=== PATIENT | male | born 1955 | race Caucasian/White ===

== ENCOUNTER 2024-10-18 17:39 | Inpatient (IN) | payer OTHER, MEDICARE ==
[~2024-10-18] VITALS: Ht 175.3 cm; Wt 81.8 kg
[2024-10-18 18:51] LABS: Eosinophils # (auto) 0 10 ^3/uL (0-0.8); Eosinophils % (auto) 0.1 % (0.0-7.0); Hemoglobin 14.2 g/dL (13.5-17.5); Lymphocytes # (auto) 1.9 10 ^3/uL (0.4-5.4); Monocytes # (auto) 1.2 10 ^3/uL (0-1.3); Nucleated Red Blood Cells % 0.1 %; Platelet Count (auto) 208 10^3/uL (140-450)
[2024-10-18 18:55] LABS: Basophils # (auto) 0.1 10 ^3/uL (0-0.2); Basophils % (auto) 0.5 % (0.0-2.0); Hematocrit 40.1 % (41.0-53.0); Lymphocytes % (auto) 15.7 % (10.0-50.0); Mean Corpuscular Hemoglobin 35.2 pg (28.0-32.0); Mean Corpuscular Hgb Conc. 35.3 g/dL (32.0-36.0); Mean Corpuscular Volume 99.7 fL (80.0-100.0); Monocytes % (auto) 9.9 % (0.0-12.0); Neutrophils # (auto) 8.9 10 ^3/uL (1.6-8.6); Neutrophils % (auto) 73.8 % (37.0-80.0); Red Blood Cells 4.02 10^6/uL (4.5-5.90)
[2024-10-18 19:12] LABS: INR 1.14 (0.9-1.15); Prothrombin Time 11.9 sec (9.3-11.8)
[2024-10-18 19:14] LABS: Alkaline Phosphatase 112 U/L (46-116); Anion Gap 15 (5-15); BUN/Creatinine Ratio 10.5 (10.0-20.0); Blood Alcohol 7.4 mg/dL (<10); Blood Urea Nitrogen 19 mg/dL (9-23); Calcium 10.3 mg/dL (8.7-10.4); Carbon Dioxide 23 mmol/L (20-31); Potassium 3.8 mmol/L (3.5-5.1)
[2024-10-18 19:15] LABS: Total Protein 7.8 g/dL (5.7-8.2)
--- NOTE | 2024-10-18 19:19 | DVH ---
CT BRAIN WITHOUT CONTRAST HISTORY: fall TECHNIQUE: Axial scans were obtained from the skull base through the vertex without contrast. Sagitta l and coronal reformats were generated. One or more of the following radiation dose reduction techniq ues were used for this examination: automated exposure control, adjustment of the mA and/or kV accord ing to patient size, use of iterative reconstruction technique. COMPARISON: None FINDINGS: Mild to moderate generalized cerebral atrophy. No acute intracranial hemorrhage or evidence of large vessel territorial infarction identified at this time. No midline shift. The basilar cisterns are pa tent. Mild left maxillary sinus mucosal thickening partially imaged. The mastoid air cells are clear. No gr ossly displaced calvarial fracture is identified. Possible left anterior frontal scalp contusions. IMPRESSION: No acute intracranial findings. Left frontal scalp contusions. CT OF THE CERVICAL SPINE WITHOUT CONTRAST HISTORY: fall COMPARISON: None TECHNIQUE: Thin section helical axial scans were obtained from the skull base to the upper thoracic s pine. Sagittal and coronal reformatted images were obtained. One or more of the following radiation d ose reduction techniques were used for this examination: automated exposure control, adjustment of th e mA and/or kV according to patient size, use of iterative reconstruction technique. FINDINGS: Straightening and mild reversal of the cervical lordotic curvature. No grossly displaced fractures or subluxations identified. Multilevel disc space narrowing and marginal osteophyte formation is noted. Disc osteophyte complex causes [id number] narrowing of the bony spinal canal at C3-C4. Prevertebral soft tissues appear within normal limits. IMPRESSION: No displaced fractures or subluxations identified. Straightening and mild reversal of the cervical curvature may be in part related to patient positioni ng and/or muscular spasm. Degenerative changes.
[2024-10-18 19:21] LABS: Chloride 91 mmol/L (98-107); Sodium 129 mmol/L (136-145)
[2024-10-18 19:22] LABS: Alanine Aminotransferase 77 U/L (7-40); Albumin 4.8 g/dL (3.2-4.8); Aspartate Aminotransferase 87 U/L (13-40); Bilirubin, Total 1.9 mg/dL (0.2-1.0); Glucose 107 mg/dL (74-106)
[2024-10-18 19:30] LABS: Lactic Acid w/Reflex 2.8 mmol/L (0.4-2.0)
[2024-10-18] MEDS: SODIUM CHLORIDE 0.9% 1,000 ML IV ONE (19:43)
--- NOTE | 2024-10-18 19:51 | ED.PDOC ---
History of Present Illness HPI Comments HPI: Poor Historian. 69-year-old male status post mechanical fall from a standing position at home without loss of consciousness. He tripped and fell and hit his head. Patient is on Eliquis. Patient was drinking whiskey at that time. He stopped drinking any alcohol since then. Patient ambulating independently in the ED. Pt states he drinks 1 pint daily which pt states is approx 8 shots 3x weekly. Pt states she started drinking 3x daily after significant other in 2011. Pt last drink Thursday, 2 days prior. Pt states he is currently on eliquis for unknown reason but states he was placed on blood thinner by PCP. Past Medical History: unknown Past Surgical History: ACL surgery medications: eliquis social history: denies tobacco use, heavy ETOH use, denies drug use. allergies: denies REVIEW OF SYSTEMS: CONSTITUTIONAL: Denies acute: fever, diaphoresis, chills, generalized weakness. HEAD: Denies acute: headache, photophobia Eyes: Denies acute: Double vision, vision loss, eye pain, eye discharge. EARS: Denies acute: tinnitus, hearing loss, ear discharge, ear pain, THROAT: Denies acute: sore throat, swelling, difficulty swallowing , pain with swallowing, change in voice. NECK: Denies acute: neck pain, neck swelling, stiff neck. HEART: Denies acute : chest pain, palpitations, LUNGS: Denies acute: SOB, wheezing, cough, hemoptysis ABDOMEN: Denies acute: abdominal pain, Nausea, Vomiting, diarrhea, melena , hematemesis, hematochezia SKIN: Denies acute: rash, redness, lesions, itchiness. EXTREMITIES: Denies acute: calf pain, numbness, tingling, weakness, denies pain in extremity. Denies acute: Low back pain. Neuro: Denies acute: focal neurological deficit, motor or sensory focal neurological deficit, tremors, seizure like activity, confusion, dizziness, change in mental status, loss of bowel or bladder function, cauda equina like symptoms. : Denies acute: dysuria, hematuria, flank pain, increase in urinary frequency. PSYCH: Denies acute: hallucination, suicidal ideation, homicidal ideation. PHYSICAL EXAM: General: no acute distress, awake and alert. Head: normocephalic, noted head contusion. Neck: supple, trachea is midline, no swelling. Cervical spine: Palpation of the posterior midline of the cervical spine reveals no focal swelling, erythema, focal tenderness to palpation. Patient has normal range of motion. Palpation of the remainder of the thoracic and lumbar spine reveals no focal tenderness to palpation or swelling. Throat: Normal phonation. Eyes:, no erythema, no proptosis, no icterus. Heart: regular rate, regular rhythm, no significant murmur appreciated. Lungs: no apparent respiratory distress, Able to speak in full sentences. No wheezing, no rhonchi, no crackles. No stridors Clear to auscultation bilaterally. Abdomen: non tender to palpation, non distended, soft, no guarding, no rebound, + bowel sounds. Neuro: Awake, Alert, oriented to name, self, situation, follows commands GCS=15. Speech is normal. Skin: no petechia, no purpura, no cyanosis, non-pale, not jaundice. Lower extremities: --no - Pitting edema no deformity, no focal swelling, no calf TTP. Makes eye contact. moves all four extremities. Face: no apparent facial droop. Ambulating in the ED independently. No nuchal rigidity, Kernig's sign, Brudzinski's sign, no meningeal signs. Chief Complaint: Head Injury Time Seen by MD: 18:12 Reviewed Notes: Nurses Notes, Medications, Allergies Allergies: Coded Allergies: NO KNOWN ALLERGIES (Unverified , 10/18/24) Information Source: Patient Mode of Arrival: Ambulatory Past Medical History PAST MEDICAL HISTORY: Unknown Was a procedure done? Was a procedure done?: No Differential Dx Considerations may include: Alcohol withdrawal, alcohol intoxication, intracranial injury bleed dislocation fracture spinal cord injury, ACS, CVA X-Ray, Labs, Meds, VS Vital Signs Date Time Temp Pulse Resp B/P (MAP) Pulse Ox O2 Delivery O2 Flow Rate FiO2 10/18/24 22:00 98.9 79 19 141/78 (99) 97 98.9 10/18/24 21:36 98.1 95 17 134/72 (92) 96 98.1 10/18/24 20:23 99 19 98 Room Air* 0 21 10/18/24 20:22 98.9 99 20 156/86 (109) 96 98.9 10/18/24 20:13 100 10/18/24 19:59 99.8 90 20 99/74 (82) 96 99.8 10/18/24 19:59 90 20 96 Room Air 10/18/24 18:10 98.6 99 16 132/90 (104) 97 Lab Test 10/18/24 21:12 10/18/24 20:49 10/18/24 19:28 10/18/24 19:20 Range/Units Troponin I High Sensitivity 24 23 </=54 ng/L Lactic Acid Level 2.5 *H 0.4-2.0 mmol/L Urine Color Light-orange Yellow Urine Clarity Turbid H Clear Urine pH 5.5 5.0-9.0 Urine Specific [place] 1.011 1.001-1.035 Urine Protein 1+ H Negative Urine Ketones 1+ H Negative Urine Blood 1+ H Negative /uL Urine Nitrite Negative Negative Urine Bilirubin Negative Negative Urine Urobilinogen Normal Negative mg/dL Urine Leukocyte Esterase 1+ Negative /uL Urine RBC 1 0 - 3 /hpf Urine Microscopic WBC 8 H 0-3 /HPF Urine Squamous Epithelial Cells Few <5 /hpf Urine Bacteria Few H None Seen /hpf Urine Hyaline Casts Mod 0 - 2 /lpf Urine Glucose Normal Normal mg/dL Urine Opiates Screen Neg NEGATIVE Urine Fentanyl Screen Neg NEGATIVE Urine Barbiturates Screen Neg NEGATIVE Urine Phencyclidine Screen Neg NEGATIVE Urine Amphetamines Screen Neg NEGATIVE Urine Benzodiazepines Screen Neg NEGATIVE Urine Cocaine Screen Neg NEGATIVE Urine Cannabinoids Screen Neg NEGATIVE Test 10/18/24 18:35 Range/Units White Blood Count 12.0 H 4.4-10.8 10^3/uL Red Blood Count 4.02 L 4.5-5.90 10^6/uL Hemoglobin 14.2 13.5-17.5 g/dL Hematocrit 40.1 L 41.0-53.0 % Mean Corpuscular Volume 99.7 80.0-100.0 fL Mean Corpuscular Hemoglobin 35.2 H 28.0-32.0 pg Mean Corpuscular Hemoglobin Concent 35.3 32.0-36.0 g/dL Red Cell Distribution Width 13.0 11.8-14.3 % Platelet Count 208 140-450 10^3/uL Mean Platelet Volume 7.9 6.9-10.8 fL Neutrophils (%) (Auto) 73.8 37.0-80.0 % Lymphocytes (%) (Auto) 15.7 10.0-50.0 % Monocytes (%) (Auto) 9.9 0.0-12.0 % Eosinophils (%) (Auto) 0.1 0.0-7.0 % Basophils (%) (Auto) 0.5 0.0-2.0 % Neutrophils # (Auto) 8.9 H 1.6-8.6 10 ^3/uL Lymphocytes # (Auto) 1.9 0.4-5.4 10 ^3/uL Monocytes # (Auto) 1.2 0-1.3 10 ^3/uL Eosinophils # (Auto) 0 0-0.8 10 ^3/uL Basophils # (Auto) 0.1 0-0.2 10 ^3/uL Nucleated Red Blood Cells 0.1 % Prothrombin Time 11.9 H 9.3-11.8 sec Prothrombin Time INR 1.14 0.9-1.15 Activated Partial Thromboplast Time 32.0 24.5-34.5 SEC Sodium Level 129 L 136-145 mmol/L Potassium Level 3.8 3.5-5.1 mmol/L Chloride Level 91 L 98-107 mmol/L Carbon Dioxide Level 23 20-31 mmol/L Anion Gap 15 5-15 Blood Urea Nitrogen 19 9-23 mg/dL Creatinine 1.81 H 0.700-1.30 mg/dL Glomerular Filtration Rate Calc 40 >90 mL/min BUN/Creatinine Ratio 10.5 10.0-20.0 Serum Glucose 107 H 74-106 mg/dL Lactic Acid Level 2.8 *H 0.4-2.0 mmol/L Calcium Level 10.3 8.7-10.4 mg/dL Magnesium Level 1.0 L 1.6-2.6 mg/dL Total Bilirubin 1.9 H 0.2-1.0 mg/dL Aspartate Amino Transferase (AST) 87 H 13-40 U/L Alanine Aminotransferase (ALT) 77 H 7-40 U/L Alkaline Phosphatase 112 46-116 U/L Troponin I High Sensitivity 23 </=54 ng/L Total Protein 7.8 5.7-8.2 g/dL Albumin 4.8 3.2-4.8 g/dL Plasma/Serum Blood Alcohol 7.4 <10 mg/dL [facility] [id number] [facility] [id number] Ph: [phone] DIAGNOSTIC IMAGING Diagnostic Imaging Report : [id number] Signed PATIENT: GEORGES MCGREGOR ACCT: [id number] UNIT: [id number] : 1955 LOC: ER ROOM / BED: / AGE / SEX: 69 / M ADM STATUS: REG ER SERVICE 11 ORDERING PHYSICIAN: LUIS MIGUEL TOMLIN DO PROCEDURE(s): HWOCT - HEAD WITHOUT CONTRAST REASON: fall ORDER NUMBER(s): [id number], ACCESSION NUMBER(s): [id number] CT BRAIN WITHOUT CONTRAST HISTORY: fall TECHNIQUE: Axial scans were obtained from the skull base through the vertex without contrast. Sagittal and coronal reformats were generated. One or more of the following radiation dose reduction techniques were used for this examination: automated exposure control, adjustment of the mA and/or kV according to patient size, use of iterative reconstruction technique. COMPARISON: None FINDINGS: Mild to moderate generalized cerebral atrophy. No acute intracranial hemorrhage or evidence of large vessel territorial infarction identified at this time. No midline shift. The basilar cisterns are patent. Mild left maxillary sinus mucosal thickening partially imaged. The mastoid air cells are clear. No grossly displaced calvarial fracture is identified. Possible left anterior frontal scalp contusions. IMPRESSION: No acute intracranial findings. Left frontal scalp contusions. CT OF THE CERVICAL SPINE WITHOUT CONTRAST HISTORY: fall COMPARISON: None TECHNIQUE: Thin section helical axial scans were obtained from the skull base to the upper thoracic spine. Sagittal and coronal reformatted images were obtained. One or more of the following radiation dose reduction techniques were used for this examination: automated exposure control, adjustment of the mA and/or kV according to patient size, use of iterative reconstruction technique. FINDINGS: Straightening and mild reversal of the cervical lordotic curvature. No grossly displaced fractures or subluxations identified. Multilevel disc space narrowing and marginal osteophyte formation is noted. Disc osteophyte complex causes [id number] narrowing of the bony spinal canal at C3-C4. Prevertebral soft tissues appear within normal limits. IMPRESSION: No displaced fractures or subluxations identified. Straightening and mild reversal of the cervical curvature may be in part related to patient positioning and/or muscular spasm. Degenerative changes. ATED BY: ISIAH CRAWFORD MD DICTATED DATE/TIME: 10/18/241915 SIGNED BY: ISIAH CRAWFORD MD SIGNED DATE/TIME: 10/18/241915 CC: [place] [id number] Ph: [phone] DIAGNOSTIC IMAGING Diagnostic Imaging Report : [id number] Signed PATIENT: GEORGES MCGREGOR ACCT: [id number] UNIT: [id number] : 1955 LOC: ER ROOM / BED: / AGE / SEX: 69 / M ADM STATUS: REG ER SERVICE 11 ORDERING PHYSICIAN: LUIS MIGUEL TOMLIN DO PROCEDURE(s): CS2 - CERVICAL WITHOUT CONTRAST REASON: fall ORDER NUMBER(s): [id number], ACCESSION NUMBER(s): [id number] CT BRAIN WITHOUT CONTRAST HISTORY: fall TECHNIQUE: Axial scans were obtained from the skull base through the vertex w ithout contrast. Sagittal and coronal reformats were generated. One or more of the following radiation dose reduction techniques were used for this examination: automated exposure control, adjustment of the mA and/or kV according to patient size, use of iterative reconstruction technique. COMPARISON: None FINDINGS: Mild to moderate generalized cerebral atrophy. No acute intracranial hemorrhage or evidence of large vessel territorial infarction identified at this time. No midline shift. The basilar cisterns are patent. Mild left maxillary sinus mucosal thickening partially imaged. The mastoid air cells are clear. No grossly displaced calvarial fracture is identified. Possible left anterior frontal scalp contusions. IMPRESSION: No acute intracranial findings. Left frontal scalp contusions. CT OF THE CERVICAL SPINE WITHOUT CONTRAST HISTORY: fall COMPARISON: None TECHNIQUE: Thin section helical axial scans were obtained from the skull base to the upper thoracic spine. Sagittal and coronal reformatted images were obtained. One or more of the following radiation dose reduction techniques were used for this examination: automated exposure control, adjustment of the mA and/or kV according to patient size, use of iterative reconstruction technique. FINDINGS: Straightening and mild reversal of the cervical lordotic curvature. No grossly displaced fractures or subluxations identified. Multilevel disc space narrowing and marginal osteophyte formation is noted. Disc osteophyte complex causes mi [id number] narrowing of the bony spinal canal at C3-C4. Prevertebral soft tissues appear within normal limits. IMPRESSION: No displaced fractures or subluxations identified. Straightening and mild reversal of the cervical curvature may be in part related to patient positioning and/or muscular spasm. Degenerative changes. ATED BY: ISIAH CRAWFORD MD DICTATED DATE/TIME: 10/18/241915 SIGNED BY: ISIAH CRAWFORD MD SIGNED DATE/TIME: 10/18/241915 CC: Time of 1ST Reevaluation: 21:34 (I was notified by the nurse here in the ED that the patient got out of bed against instructions and fell again and hit his head without loss of consciousness. His repeat CT scan was ordered.) Reevaluation 1ST: Unchanged Patient Education/Counseling: Diagnosis, Treatment Family Education/Counseling: No Family Present Comments MDM: Patient presented with the above HPI.-- mechanical fall -and head injury on blood thinners and intoxicated.--workup was initiated. patient was found with the above mentioned diagnosis. the following medications/ tests were ordered: the following medications were ordered: CT head w/o contrast, Cervical without contrast, EKG, CBC, CMP, blood alcohol, drug screen, lactic acid, troponin x3, UA, PTPTT, ativan, mag level, IV fluids, magnesium sulfate, magnesium oxide please refer to order lists of meds and tests obtained by myself Dr. Tomlin. Patient ED course and VS have been stabilized. Patient has been reassessed in the ED and remained in a stable condition. Pertinent incidental findings were discussed with the patient and/or family. Patient/family voices understanding and is agreeable with plan. Patient has been observed in the ED adequate length of time to insure improvement/stability. Escalation of care considered: Consideration of escalation to observation or admission Patient was ADMITTED to the medicine team for further evaluation and treatment of their presentation. All the reports of any imaging studies that were ordered by myself were reviewed by myself. Departure 1 Departure Time of Disposition: 19:51 Impression: Primary Impression: Closed head injury Additional Impressions: Hypomagnesemia Alcohol abuse Alcohol withdrawal Unsteady gait Risk for falls UTI (urinary tract infection) Disposition: 09 ADMITTED INPATIENT Admit to: Tele Condition: Guarded Discharged With: Self Critical Care Note Critical Care Time?: Yes (45 min-critical care time only) Heart Score Heart Score: Heart Score Response (Comments) Value History Slightly Suspicious 0 EKG Normal 0 Age >65 2 Risk Factors 1 or 2 risk factors 1 Troponin Normal limit 0 Total 3 I personally scribed for LUIS MIGUEL TOMLIN DO ([email or web address]) on 10/18/24 at 20:32. Electronically submitted by Osmel Craig ([facility]). LUIS MIGUEL TOMLIN DO Oct 18, 2024 19:51
[2024-10-18 19:57] LABS: Urine Bacteria FEW /hpf (None Seen); Urine Blood 1+ /uL (Negative); Urine Clarity Turbid (Clear); Urine Color Light-Orange (Yellow); Urine Hyaline Cast MOD /lpf (0 - 2); Urine Protein, UAD 1+ (Negative); Urine Specific Gravity 1.011 (1.001-1.035); Urine Squamous Epithelial Cell FEW /hpf (<5); Urine Urobilinogen Normal (Negative); Urine WBC 8 /HPF (0-3); Urine pH 5.5 (5.0-9.0)
[2024-10-18] MEDS: MAGNESIUM OXIDE 400 MG TAB PO ONE (19:58)
[2024-10-18 20:09] LABS: Amphetamine Screen, Urine Neg (NEGATIVE); Barbiturate Scree,Urine Neg (NEGATIVE); Benzodiazephine Screen, Urine Neg (NEGATIVE); Cannabinoid Screen, Urine Neg (NEGATIVE); Cocaine Screen, Urine Neg (NEGATIVE); Opiate Scree,Urine Neg (NEGATIVE); Phencyclidine Screen, Urine Neg (NEGATIVE)
[2024-10-18] MEDS: LORazepam 2MG/ML-1ML VIAL IV ONE (20:15)
[2024-10-18] MEDS: MAGNESIUM SULFATE 1GM/100ML 100 ML IV ONE (20:16)
[2024-10-18 20:23] VITALS: PULSE 99; RESP 19; O2SAT 98
[2024-10-18] MEDS: THIAMINE HCL 100 MG TAB PO ONE (21:07)
[2024-10-18] MEDS: cefTRIAXone 1GM/50ML D5W 50 ML IV ONE (22:05)
--- NOTE | 2024-10-18 22:07 | DVH ---
CT BRAIN WITHOUT CONTRAST HISTORY: repeat fall in the ED TECHNIQUE: Axial scans were obtained from the skull base through the vertex without contrast. Sagitta l and coronal reformats were generated. One or more of the following radiation dose reduction techniq ues were used for this examination: automated exposure control, adjustment of the mA and/or kV accord ing to patient size, use of iterative reconstruction technique. COMPARISON: CT HEAD WITHOUT CONTRAST on DOS: 10/18/24 FINDINGS: No acute intracranial hemorrhage or evidence of large vessel territorial infarction identified at thi s time. No midline shift. The basilar cisterns are patent. Left maxillary sinus mucosal thickening again noted. The other visualized paranasal sinuses and masto id air cells are grossly clear. No displaced calvarial fractures identified. Left frontal scalp contu sions again noted. IMPRESSION: No acute intracranial findings. Grossly stable exam.
--- NOTE | 2024-10-18 23:22 | DVHHPRES ---
History of Present Illness Resident Creating Document: [facility] History of Present Illness This is a 69-year-old male with past medical history of hypertension and status post mechanical fall. Per patient, on Thursday (3 days back) back at home, the patient tripped and fell on the ground, but did not loss of consciousness. Patient is a heavy alcohol drinker, and his last drink was on Thursday. Post fall, the patient was feeling weakness, unsteady and stayed at home for 2 days. On Thursday, the patient was assessed at office and referred to the hospital for further evaluation. Patient denies fever, shortness of breath, chest pain, palpitation, nausea, vomiting, blurry vision, or any motor or sensory deficits. Per patient, the patient using Eliquis but does not remember the reason. During hospital admission ER, the patient also had another fall due to instability but the patient did not lose consciousness PMHx: Hypertension PSHx: Knee and shoulder surgery Social history: Patient lives alone at home, heavy alcohol drinker, ex-smoker, denies any other drug use Home medication: Eliquis, metoprolol and nifedipine Allergic history: No known allergies Review of Systems Review of Systems General: patient denies fever, fatigue, weaknes, sweating, any recent changes in appetite and weight HEENT: No headaches, visiual changes, hearing loss, tinnitus, nasal congestion and discharge, and sore throat. Cardiovascular: Denies chest pain, palpitations, dyspnea on exertion, orthopnea, or claudication. Respiratory: No cough, and wheezing. Gastrointestinal: Denies nausea, vomiting, dysphagia, odynophagia, heartburn, abdominal pain, flatulence, bloating, diarrhea, constipation, change in stool, or blood in stool. Genitourinary: No dysuria, hematuria, discharge, frequency, urgency, nocturia, incontinence, and urinary retention. Endocrine: No heat or cold intolerance, polydipsia, polyuria, and polyphagia. Neurological: Patient reports imbalance during walking Psychiatric: Denies depression, anxiety,or insomnia. Musculoskeletal: Denies neck pain, stiffness and swelling, back pain, muscle weakness, joint pain, stiffness, swelling, or limited range of motion. Skin: No rashes, itching, skin lesion, changes in hair, nail, skin texture and breast. Hematologic/Lymphatic: Denies easy bruising, bleeding tendencies, or lymph node enlargement. Allergies: Coded Allergies: NO KNOWN ALLERGIES (Unverified , 10/18/24) Medications Current Medications Medications Dose Ordered Sig/Jason Route Start Time Stop Time Status Last Admin Dose Admin Nitroglycerin 0.4 mg Q5MINP PRN SL 10/18/24 23:30 UNV Exam Vital Signs Vital Signs Date Time Temp Pulse Resp B/P (MAP) Pulse Ox O2 Delivery O2 Flow Rate FiO2 10/18/24 21:36 98.1 95 17 134/72 (92) 96 98.1 10/18/24 20:23 Room Air* 0 21 Exam General Appearance: Alert, Oriented X3, Cooperative, No acute distress HEENT: Atraumatic, PERRLA, EOMI, Mucous membrane moist/pink Respiratory: Clear to auscultation, Normal air movement Cardiovascular: Regular rate, Normal S1, Normal S2, No murmurs, no chest wall tenderness Abdominal: Normal bowel sounds, Soft, No tenderness, No hepatospenomegaly, No masses Extremities: No clubbing, No cyanosis, No edema, Normal pulses, No tenderness/swelling Skin: Bilateral frontal abrasion Neuro: Ataxia and tremor Psych/Mental Status: Mental status NL, Mood NL Labs/Xrays Labs Test 10/18/24 21:12 10/18/24 20:49 10/18/24 19:28 10/18/24 18:35 Range/Units Troponin I High Sensitivity 24 </=54 ng/L Lactic Acid Level 2.5 *H 0.4-2.0 mmol/L Urine Color Light-orange Yellow Urine Clarity Turbid H Clear Urine pH 5.5 5.0-9.0 Urine Specific [place] 1.011 1.001-1.035 Urine Protein 1+ H Negative Urine Ketones 1+ H Negative Urine Blood 1+ H Negative /uL Urine Nitrite Negative Negative Urine Bilirubin Negative Negative Urine Urobilinogen Normal Negative mg/dL Urine Leukocyte Esterase 1+ Negative /uL Urine RBC 1 0 - 3 /hpf Urine Microscopic WBC 8 H 0-3 /HPF Urine Squamous Epithelial Cells Few <5 /hpf Urine Bacteria Few H None Seen /hpf Urine Hyaline Casts Mod 0 - 2 /lpf Urine Glucose Normal Normal mg/dL Urine Opiates Screen Neg NEGATIVE Urine Fentanyl Screen Neg NEGATIVE Urine Barbiturates Screen Neg NEGATIVE Urine Phencyclidine Screen Neg NEGATIVE Urine Amphetamines Screen Neg NEGATIVE Urine Benzodiazepines Screen Neg NEGATIVE Urine Cocaine Screen Neg NEGATIVE Urine Cannabinoids Screen Neg NEGATIVE White Blood Count 12.0 H 4.4-10.8 10^3/uL Red Blood Count 4.02 L 4.5-5.90 10^6/uL Hemoglobin 14.2 13.5-17.5 g/dL Hematocrit 40.1 L 41.0-53.0 % Mean Corpuscular Volume 99.7 80.0-100.0 fL Mean Corpuscular Hemoglobin 35.2 H 28.0-32.0 pg Mean Corpuscular Hemoglobin Concent 35.3 32.0-36.0 g/dL Red Cell Distribution Width 13.0 11.8-14.3 % Platelet Count 208 140-450 10^3/uL Mean Platelet Volume 7.9 6.9-10.8 fL Neutrophils (%) (Auto) 73.8 37.0-80.0 % Lymphocytes (%) (Auto) 15.7 10.0-50.0 % Monocytes (%) (Auto) 9.9 0.0-12.0 % Eosinophils (%) (Auto) 0.1 0.0-7.0 % Basophils (%) (Auto) 0.5 0.0-2.0 % Neutrophils # (Auto) 8.9 H 1.6-8.6 10 ^3/uL Lymphocytes # (Auto) 1.9 0.4-5.4 10 ^3/uL Monocytes # (Auto) 1.2 0-1.3 10 ^3/uL Eosinophils # (Auto) 0 0-0.8 10 ^3/uL Basophils # (Auto) 0.1 0-0.2 10 ^3/uL Nucleated Red Blood Cells 0.1 % Prothrombin Time 11.9 H 9.3-11.8 sec Prothrombin Time INR 1.14 0.9-1.15 Activated Partial Thromboplast Time 32.0 24.5-34.5 SEC Sodium Level 129 L 136-145 mmol/L Potassium Level 3.8 3.5-5.1 mmol/L Chloride Level 91 L 98-107 mmol/L Carbon Dioxide Level 23 20-31 mmol/L Anion Gap 15 5-15 Blood Urea Nitrogen 19 9-23 mg/dL Creatinine 1.81 H 0.700-1.30 mg/dL Glomerular Filtration Rate Calc 40 >90 mL/min BUN/Creatinine Ratio 10.5 10.0-20.0 Serum Glucose 107 H 74-106 mg/dL Calcium Level 10.3 8.7-10.4 mg/dL Magnesium Level 1.0 L 1.6-2.6 mg/dL Total Bilirubin 1.9 H 0.2-1.0 mg/dL Aspartate Amino Transferase (AST) 87 H 13-40 U/L Alanine Aminotransferase (ALT) 77 H 7-40 U/L Alkaline Phosphatase 112 46-116 U/L Total Protein 7.8 5.7-8.2 g/dL Albumin 4.8 3.2-4.8 g/dL Plasma/Serum Blood Alcohol 7.4 <10 mg/dL Assessment/Plan Assessment/Plan Status post mechanical fall, likely due to alcohol intoxication Possible alcohol withdrawal Patient had visualized hallucination in hospital Head CT scan shows no acute intracranial abnormalities CIWA score is 4 Banana bag Injection thiamine Librium p.r.n. Ativan p.r.n. Sepsis, likely due to UTI UTI, unspecified location UA shows UTI picture Ceftriaxone Urine culture IV normal saline Possible LEIGH, likely VMN IV fluid History of hypertension Continue metoprolol Transaminitis, likely due to alcohol use disorder Hypomagnesemia, repleted Mild hyponatremia, monitoring Hyperchloremia, monitoring DIET: Cardiac diet DVT PROPHYLAXIS: Lovenox GI PROPHYLAXIS:: Protonix CODE STATUS: Goal of care discussed for more than 21 minutes, full code DISPOSITION: Telemetry Patient's status and paln discussed with the patient. Case discussed with Dr. Yoo. Plan discussed with: Patient, Other (RN) My Orders Orders - ARELI SANTIAGO RESDIENT Procedure Category Date Status Time Admit ADMIT 10/18/24 Transmitted 23:20 Nitroglycerin PHA 10/18/24 Transmitted Sublingual (Ntrostat 23:30 Stat Ekg For Chest [facility] 10/18/24 In Process Pain 23:20 Notify Of Changes [facility] 10/18/24 In Process From Base 23:20 Diagnostic Sales Specialist For [facility] 10/18/24 In Process 24 Hours 23:20 Emergency Dysrhythmia [facility] 10/18/24 In Process Protocol 23:20 Rhythm Strips Once [facility] 10/18/24 In Process Every Shift 23:20 Date of Service: Oct 18, 2024 Billing Provider: ROBBY GRAYSON MD Common Visit Codes: [id number] INP/OBS CARE (HIGH) ARELI SANTIAGO Oct 18, 2024 23:22 ROBBY GRAYSON MD Oct 19, 2024 23:12
[2024-10-18] MEDS ORDERED: NITROGLYCERIN 0.4 MG SL TAB SL PRN (23:30)
[2024-10-19] MEDS: MAGNESIUM SULFATE 1GM/100ML 100 ML IV SCH (03:58)
[2024-10-19] MEDS: SODIUM CHLORIDE 0.9% 1,000 ML IV ONE (03:58)
[2024-10-19] MEDS: THIAMINE 100mg/ml INJ (200mg/2ml VIAL) IV ONE (04:20)
[2024-10-19] MEDS: ENOXAPARIN SOD 40 MG/0.4 ML SYRINGE SC ONE (04:21)
[2024-10-19 05:26] LABS: Basophils # (auto) 0 10 ^3/uL (0-0.2); Basophils % (auto) 0.3 % (0.0-2.0); Eosinophils # (auto) 0 10 ^3/uL (0-0.8); Eosinophils % (auto) 0.7 % (0.0-7.0); Hematocrit 36.3 % (41.0-53.0); Hemoglobin 12.8 g/dL (13.5-17.5); Lymphocytes # (auto) 1.2 10 ^3/uL (0.4-5.4); Lymphocytes % (auto) 17.9 % (10.0-50.0); Mean Corpuscular Hemoglobin 35.3 pg (28.0-32.0); Mean Corpuscular Hgb Conc. 35.2 g/dL (32.0-36.0); Mean Corpuscular Volume 100.3 fL (80.0-100.0); Monocytes # (auto) 0.7 10 ^3/uL (0-1.3); Monocytes % (auto) 10.9 % (0.0-12.0); Neutrophils # (auto) 4.6 10 ^3/uL (1.6-8.6); Neutrophils % (auto) 70.2 % (37.0-80.0); Nucleated Red Blood Cells % 0.1 %; Platelet Count (auto) 157 10^3/uL (140-450); Red Blood Cells 3.62 10^6/uL (4.5-5.90); Red Cell Distribution Width 13.1 % (11.8-14.3); White Blood Cell 6.5 10^3/uL (4.4-10.8)
[2024-10-19 05:42] LABS: Magnesium 1.7 mg/dL (1.6-2.6)
[2024-10-19 05:44] LABS: Alanine Aminotransferase 60 U/L (7-40); Albumin 3.8 g/dL (3.2-4.8); Alkaline Phosphatase 80 U/L (46-116); Anion Gap 12 (5-15); Aspartate Aminotransferase 83 U/L (13-40); BUN/Creatinine Ratio 12.7 (10.0-20.0); Bilirubin, Total 1.2 mg/dL (0.2-1.0); Blood Urea Nitrogen 13 mg/dL (9-23); Calcium 9.8 mg/dL (8.7-10.4); Carbon Dioxide 24 mmol/L (20-31); Chloride 99 mmol/L (98-107); Glucose 94 mg/dL (74-106); Potassium 3.1 mmol/L (3.5-5.1); Sodium 135 mmol/L (136-145); Total Protein 6.6 g/dL (5.7-8.2)
[2024-10-19 05:47] LABS: Folate (Folic Acid) 9.9 ng/mL (>5.38)
[2024-10-19] MEDS: ERYTHROMY OPTH OINT 5mg/gm 1gm or 3.5gm tube OP SCH (06:03)
--- NOTE | 2024-10-19 07:49 | DVH ---
INDICATION: raised LFT TECHNIQUE: Multiple real-time sonographic images of the abdomen were obtained. COMPARISON: None FINDINGS: The liver is increased in echogenicity. The liver measures 17.7 cm. No intrahepatic biliar y ductal dilatation is noted. The gallbladder wall measures 0.2 cm and is unremarkable. No gallstones or sludge is seen. The com mon duct measures 0.4 cm and is unremarkable. No pericholecystic fluid is noted. Negative sonographi c sign. The right kidney measures 9.1 cm. No hydronephrosis. There is a cyst in the upper pole measuring 1.2 x 1.0 x 1.2 cm. The pancreas is not well visualized due to obscuration from bowel gas. The visualized portions of the IVC and aorta are grossly unremarkable. IMPRESSION: 1. Hepatic steatosis. 2. Renal cyst.
[2024-10-19 08:00] VITALS: PULSE 102; RESP 16; O2SAT 97
--- NOTE | 2024-10-19 09:09 | ECG ---
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
[2024-10-19] MEDS: POTASSIUM EFFERVESENT TAB 25 MEQ GT ONE (09:42)
[2024-10-19] MEDS: METOPROLOL SUCCINATE XL 50 MG TAB PO SCH (09:45)
[2024-10-19] MEDS ORDERED: ENOXAPARIN SOD 40 MG/0.4 ML SYRINGE SC SCH (10:00)
--- NOTE | 2024-10-19 17:43 | DVHPNRES ---
Progress Note Date Seen: Oct 19, 2024 Resident Creating Document: ELIZABETH NARANJO RESIDENT Has the PT tested + for MRSA If YES, has PT been informed?: No Medical Necessity Reason Pt with a Central, PICC or Fol: No Medical Necessity Reason Alcohol Withdrawal Subjective Review of Systems This is a 69-year-old male with past medical history of hypertension, chronic alcohol use. His last drink was on Thursday. Patient said he had 4 shots of whisky and beer. He said he was not intoxicated but he tripped and fell but did not loss of consciousness. Post fall, the patient reported feeling weakness, unsteady and stayed at home for 2 days. On Thursday, Patient reported to work; however, he mentioned not feeling well and unable to hold his gait. 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 In the ED, patient denies fever, shortness of breath, chest pain, palpitation, nausea, vomiting, blurry vision, or any motor or sensory deficits. His home medication include Eliquis, metoprolol and nifedipine. Patient does not know why or what is for. Constitutional: Denies fever no chills no feeling of malaise HEENT: Denies headache, hordeolum right eye, ear discharges, conjunctivitis, nasal discharge throat pain; bruising on his forehead Cardiovascular: Denies chest pain, palpitation, orthopnea, PND, or pedal edema Respiratory: Denies shortness of breath, cough cough, sputum production, hemoptysis, GI: Denies abdominal pain, nausea, vomiting, diarrhea, hematemesis, hematochezia, : Denies frequency, urgency, hematuria, Endocrine: Denies unintentional weight gain or weight loss, feeling of hot flashes, Kenneth: Denies easy bruising, bleeding disorders, epistaxis Musculoskeletal: Denies joint pains, muscle aches Psych: No evidence of depression, rolando, suicidal ideation Objective vital signs Vital Sign Date Time Temp Pulse Resp B/P (MAP) Pulse Ox O2 Delivery O2 Flow Rate FiO2 10/19/24 16:01 91 10/19/24 14:00 22 137/95 (109) 93 10/19/24 08:00 Room Air* 0 21 10/19/24 08:00 98.6 98.6 Total Intake and Output 10/18/24 10/18/24 10/19/24 15:00 23:00 07:00 Intake Total 1100 ml 800 ml Output Total 1550 ml Balance 1100 ml -750 ml medications Current Medications Medications Dose Ordered Sig/Jason Route Start Time Stop Time Status Last Admin Dose Admin Nitroglycerin 0.4 mg Q5MINP PRN SL 10/18/24 23:30 Ceftriaxone Sodium 50 ml @ 100 mls/hr DAILY@2100 IV 10/19/24 21:00 Metoprolol Succinate 25 mg DAILY PO 10/19/24 10:00 10/19/24 09:45 25 MG Lorazepam 1 mg Q2HPRN PRN IV 10/19/24 03:00 Chlordiazepoxide HCl 10 mg Q4HPRN PRN PO 10/19/24 03:00 Enoxaparin Sodium 40 mg DAILY SC 10/20/24 10:00 Erythromycin 1 applic Q4HR OP 10/19/24 06:00 10/19/24 14:30 1 APPLIC Cyclobenzaprine HCl 10 mg Q8HPRN PRN PO 10/19/24 14:45 Examination General Appearance: Alert, Oriented X3, Cooperative, No acute distress,reduce tremors, bruising on his forehead HEENT: Atraumatic, PERRLA, EOMI, Mucous membrane moist/pink, erythema, hordeolum Respiratory: Clear to auscultation, Normal air movement Cardiovascular: Regular rate, Normal S1, Normal S2, No murmurs, no chest wall tenderness Abdominal: protrusion, distention, no tenderness, bowel sounds present, no scars noted Extremities: No clubbing, No cyanosis, No edema, Normal pulses, No tenderness/swelling Skin: No rashes, No breakdown, No significant lesion Neuro: Normal gait, Normal speech, Strength at 5/5 X4 ext, Normal tone, Sensation intact, Cranial nerves 3-12 NL, Reflexes 2+ Psych/Mental Status: Mental status NL, Mood NL laboratory and microbiology Laboratory Tests 10/19/24 05:10 Test 10/19/24 05:10 Range/Units Serum Glucose 94 74-106 mg/dL Problem List/Assessment/Plan Problem List/Assessment/Plan Assessment Alcohol withdrawal Likely Sepsis due to UTI, POA UTI LEIGH likely due to VMN Lactic acidosis hypokalemia Hyponatremia Alcohol abuser Hepatic steatosis. Renal cyst. Hordeolum PLAN Continue Banana bag with vitamins+ thiamine+ folic acid Continue Chlordiazepoxide 10 mg q4h prn Continue Ativan 1 mg prn Ceftriaxone 1 g daily Urine culture IV normal saline IV fluid erythromycin ointment warm compress PT evaluation Diet; regular prophylaxis: levonox if non-ambulatory Case discussed for more than 35 minute Case and plan discussed with Dr. Regan Plan discussed with: Patient My Orders My Orders Orders - ELIZABETH NARANJO Procedure Category Date Status Time Cyclobenzaprine PHA 10/19/24 In Process Tablet (Flexeril 14:45 Pt Request For Service PT 10/19/24 Logged 14:35 Date of Service: Oct 19, 2024 Billing Provider: PATRICK REGAN MD Common Visit Codes: [id number] INP/OBS CARE(HIGH) ELIZABETH NARANJO RESIDENT Oct 19, 2024 17:43 PATRICK REGAN MD Oct 20, 2024 11:55
[2024-10-19] MEDS ORDERED: ERYTHROMY OPTH OINT 5mg/gm 1gm or 3.5gm tube OP SCH (18:00)
[2024-10-19 19:34] VITALS: RESP 16; O2SAT 97
[2024-10-19] MEDS: cefTRIAXone 1GM/50ML D5W 50 ML IV SCH (21:00)
[2024-10-19] MEDS: chlordiazePOXIDE HCL 5 MG CAP PO PRN (22:04)
[2024-10-20] MEDS: LORazepam 2MG/ML-1ML VIAL IV PRN (01:33)
[2024-10-20] MEDS: HALOPERIDOL LACTATE 5 MG/ML INJ VIAL ONE (02:25)
[2024-10-20 04:51] LABS: Basophils # (auto) 0 10 ^3/uL (0-0.2); Eosinophils # (auto) 0.1 10 ^3/uL (0-0.8); White Blood Cell 8.3 10^3/uL (4.4-10.8)
[2024-10-20 04:54] LABS: Basophils % (auto) 0.4 % (0.0-2.0); Eosinophils % (auto) 0.9 % (0.0-7.0); Hematocrit 35.5 % (41.0-53.0); Hemoglobin 12.4 g/dL (13.5-17.5); Lymphocytes # (auto) 0.9 10 ^3/uL (0.4-5.4); Lymphocytes % (auto) 11.4 % (10.0-50.0); Mean Corpuscular Hemoglobin 35.4 pg (28.0-32.0); Mean Corpuscular Volume 101.2 fL (80.0-100.0); Monocytes # (auto) 0.7 10 ^3/uL (0-1.3); Monocytes % (auto) 8.8 % (0.0-12.0); Neutrophils # (auto) 6.5 10 ^3/uL (1.6-8.6); Neutrophils % (auto) 78.5 % (37.0-80.0); Nucleated Red Blood Cells % 0.1 %; Platelet Count (auto) 150 10^3/uL (140-450); Red Blood Cells 3.51 10^6/uL (4.5-5.90); Red Cell Distribution Width 13.1 % (11.8-14.3)
[2024-10-20 05:13] LABS: Albumin 3.8 g/dL (3.2-4.8); Alkaline Phosphatase 97 U/L (46-116); Anion Gap 8 (5-15); BUN/Creatinine Ratio 14.9 (10.0-20.0); Bilirubin, Total 0.9 mg/dL (0.2-1.0); Blood Urea Nitrogen 14 mg/dL (9-23); Calcium 9.4 mg/dL (8.7-10.4); Carbon Dioxide 24 mmol/L (20-31); Chloride 107 mmol/L (98-107); Potassium 3.6 mmol/L (3.5-5.1); Sodium 139 mmol/L (136-145); Total Protein 6.4 g/dL (5.7-8.2)
[2024-10-20 05:16] LABS: Alanine Aminotransferase 78 U/L (7-40); Aspartate Aminotransferase 106 U/L (13-40); Glucose 132 mg/dL (74-106)
[2024-10-20] MEDS: CYCLOBENZAPRINE HCL 10 MG TAB PO PRN (05:32)
[2024-10-20] MEDS: diphenhdrAMINE HCL 50 MG/1 ML VL IV ONE (06:15)
[2024-10-20] MEDS: LORazepam 2MG/ML-1ML VIAL IM ONE (06:42)
[2024-10-20 09:30] LABS: Hepatitis B Core Total AB Negative (Negative)
[2024-10-20] MEDS ORDERED: THIAMINE 100mg/ml INJ (200mg/2ml VIAL) IV ONE (10:15)
[2024-10-20] MEDS ORDERED: chlordiazePOXIDE HCL 5 MG CAP PO PRN (10:15)
[2024-10-20] MEDS ORDERED: LABETALOL HCL 20 MG/4 ML VL IV PRN (10:15)
[2024-10-20] MEDS: ENOXAPARIN SOD 40 MG/0.4 ML SYRINGE SC SCH (10:21)
[2024-10-20 11:23] LABS: Hepatitis A Total Antibody Negative (Negative); Hepatitis B Surface Antibody Negative (Negative); Hepatitis B Surface Antigen Negative (Negative); Hepatitis C Antibody Negative (Negative)
[2024-10-20 11:30] VITALS: BP 154/95; PULSE 68; RESP 18; TEMP 97.8; O2SAT 93
[2024-10-20] MEDS ORDERED: HALOPERIDOL LACTATE 5 MG/ML INJ VIAL IV PRN (14:30)
--- NOTE | 2024-10-20 15:57 | DVHPN2 ---
Subjective Patient with altered mental status. Reviewed: Care Plan, H&P, Labs, Medications Changes from previous H/P or p: No Changes General: Per HPI Objective Vitals Vital Signs Date Time Temp Pulse Resp B/P (MAP) Pulse Ox O2 Delivery O2 Flow Rate FiO2 10/20/24 12:34 Room Air* 0 21 10/20/24 11:30 97.8 68 18 154/95 (114) 93 97.8 Intake/Output Intake and Output 10/20/24 07:00 Output Total 125 ml Balance -125 ml Output Urine Total 125 ml Exam Patient noted to be in four point restraints. Apparently patient has been biting, kicking, spitting at staff. General Appearance: No acute distress, Other (Patient was sleeping after receiving IV Ativan) HEENT: Atraumatic, PERRLA Lungs: Clear to auscultation, Normal air movement Cardiovascular: Normal S1, Normal S2 Abdomen: Normal bowel sounds, Soft Genitourinary: No Apparent Abnormalities Musculoskeletal: Normal sensory function, Normal motor function Neuro: Normal gait, Normal speech Psych/Mental Status: Mental status NL, Mood NL Medications Current Medications Medications Dose Ordered Sig/Jason Route Start Time Stop Time Status Last Admin Dose Admin Nitroglycerin 0.4 mg Q5MINP PRN SL 10/18/24 23:30 Ceftriaxone Sodium 50 ml @ 100 mls/hr DAILY@2100 IV 10/19/24 21:00 10/19/24 21:00 100 MLS/HR Metoprolol Succinate 25 mg DAILY PO 10/19/24 10:00 10/20/24 10:22 25 MG Lorazepam 1 mg Q2HPRN PRN IV 10/19/24 03:00 10/20/24 15:27 1 MG Enoxaparin Sodium 40 mg DAILY SC 10/20/24 10:00 10/20/24 10:21 40 MG Erythromycin 1 applic Q4HR OP 10/19/24 06:00 10/20/24 10:21 1 APPLIC Cyclobenzaprine HCl 10 mg Q8HPRN PRN PO 10/19/24 14:45 10/20/24 05:32 10 MG Erythromycin 1 applic Q4HR OP 10/19/24 18:00 UNV Folic Acid 1 mg/ Magnesium Sulfate 8 meq/ Multivitamins 10 ml/Thiamine HCl 100 mg/Sodium Chloride 1,013.2 ml @ 126.247 mls/hr DAILY@1800 INJ 10/20/24 10:30 Thiamine HCl 100 mg DAILY IV 10/21/24 10:00 Labetalol HCl 5 mg Q2HPRN PRN IV 10/20/24 10:15 Folic Acid 1 mg/ Dextrose 50.2 ml @ 200.8 mls/ hr DAILY INJ 10/21/24 10:00 Chlordiazepoxide HCl 25 mg Q6HR PO 10/20/24 18:00 Haloperidol Lactate 2.5 mg Q8HP PRN IV 10/20/24 14:30 Laboratory Results Laboratory Tests 10/20/24 04:41 Chemistry Test 10/20/24 04:41 Albumin 3.8 g/dL (3.2-4.8) Calcium Level 9.4 mg/dL (8.7-10.4) Total Protein 6.4 g/dL (5.7-8.2) LFT Test 10/20/24 04:41 Alanine Aminotransferase (ALT) 78 U/L (7-40) H Alkaline Phosphatase 97 U/L (46-116) Aspartate Amino Transferase (AST) 106 U/L (13-40) H Total Bilirubin 0.9 mg/dL (0.2-1.0) Urinalysis Test 10/18/24 19:28 Urine Color Light-orange (Yellow) Urine Clarity Turbid (Clear) H Urine pH 5.5 (5.0-9.0) Urine Specific [place] 1.011 (1.001-1.035) Urine Protein 1+ (Negative) H Urine Ketones 1+ (Negative) H Urine Blood 1+ /uL (Negative) H Urine Nitrite Negative (Negative) Urine Bilirubin Negative (Negative) Urine Urobilinogen Normal mg/dL (Negative) Urine Leukocyte Esterase 1+ /uL (Negative) Urine RBC 1 /hpf (0 - 3) Urine Microscopic WBC 8 /HPF (0-3) H Urine Squamous Epithelial Cells Few /hpf (<5) Urine Bacteria Few /hpf (None Seen) H Urine Hyaline Casts Mod /lpf (0 - 2) Urine Glucose Normal mg/dL (Normal) Labs and/or images reviewed: Labs reviewed by me, Image(s) reviewed by me Assessment/Plan Assessment/Plan Impression: -metabolic encephalopathy, probable delirium tremens -alcoholism -primary hypertension -combative behavior -hypokalemia Plan: -bedside sitter with four-point restraints -banana bag daily -IV Ativan as needed, p.o. Librium q.6 hours -potassium replacement -IV Haldol for severe agitation -continue antihypertensives -repeat labs in a.m. Total time spent with patient discussing and formulating plan of care: 35 minutes. This medical document was created using an electronic medical record system with [employer] dictation system. Although this document has been carefully reviewed, there may still be some phonetic and typographical errors. These areas are purely typographical due to imperfections of the software programs, and do not reflect any compromise in the patient's medical care. Plan discussed with: Patient, Other (RN) My Orders Orders - BON MIRANDA NP Procedure Category Date Status Time Behavioral Restraints ORDERS 10/20/24 Transmitted 11:44 Chlordiazepoxide Hcl PHA 10/20/24 In Process Capsule (Librium Ca 18:00 Haloperidol Lactate PHA 10/20/24 In Process Injection (Haldol) 14:30 Comprehensive LAB 10/21/24 Verified Metabolic Panel 04:00 Date of Service: Oct 20, 2024 Billing Provider: BON MIRANDA NP Common Visit Codes: [id number] INP/OBS CARE(HIGH) BON MIRANDA NP Oct 20, 2024 15:57
[2024-10-20 17:00] VITALS: BP 144/84; PULSE 65; RESP 18; TEMP 97.7; O2SAT 94
[2024-10-20] MEDS: chlordiazePOXIDE HCL 25 MG CAP PO SCH (17:54)
[2024-10-20] MEDS: FOLIC ACID 1 MG, MAGNESIUM SULF SDV 50% 8 MEQ, MULTIPLE VITAMIN 10 ML, THIAMINE INJ 100... INJ SCH (18:32)
[2024-10-20 20:00] VITALS: PULSE 67; PULSE 73; RESP 17; O2SAT 98
[2024-10-20 21:00] VITALS: BP 160/90; PULSE 67; RESP 17; TEMP 98.3; O2SAT 98
[2024-10-21 05:00] VITALS: BP 142/88; PULSE 69; RESP 18; TEMP 98.6; O2SAT 98
[2024-10-21 06:48] LABS: Albumin 3.5 g/dL (3.2-4.8); Alkaline Phosphatase 82 U/L (46-116); Anion Gap 10 (5-15); BUN/Creatinine Ratio 11.9 (10.0-20.0); Bilirubin, Total 0.9 mg/dL (0.2-1.0); Blood Urea Nitrogen 8 mg/dL (9-23); Calcium 9.5 mg/dL (8.7-10.4); Carbon Dioxide 24 mmol/L (20-31); Chloride 104 mmol/L (98-107); Glucose 111 mg/dL (74-106); Potassium 3.5 mmol/L (3.5-5.1); Sodium 138 mmol/L (136-145); Total Protein 6.3 g/dL (5.7-8.2)
[2024-10-21 06:49] LABS: Alanine Aminotransferase 90 U/L (7-40); Aspartate Aminotransferase 99 U/L (13-40)
[2024-10-21 08:00] VITALS: PULSE 83; RESP 17; O2SAT 98
[2024-10-21] MEDS: THIAMINE 100mg/ml INJ (200mg/2ml VIAL) IV SCH (09:46)
[2024-10-21] MEDS: FOLIC ACID 1 MG in D5W 5% 50 ML INJ SCH (09:47)
[2024-10-21 12:34] VITALS: BP 136/72; PULSE 50; RESP 19; TEMP 99.1; O2SAT 95
--- NOTE | 2024-10-21 12:48 | DVHPN2 ---
Subjective Patient with altered mental status. Reviewed: Care Plan, H&P, Labs, Medications Changes from previous H/P or p: No Changes General: Per HPI Objective Vitals Vital Signs Date Time Temp Pulse Resp B/P (MAP) Pulse Ox O2 Delivery O2 Flow Rate FiO2 10/21/24 12:34 99.1 50 19 136/72 (93) 95 99.1 10/20/24 20:00 Room Air* 0 21 Intake/Output Intake and Output 10/21/24 07:00 Intake Total 2613.2 ml Output Total 900 ml Balance 1713.2 ml Intake Oral 1550 ml IV Total 1063.2 ml Output Urine Total 900 ml # Voids 1 Exam Patient noted to be in four point restraints. Apparently patient has been biting, kicking, spitting at staff. General Appearance: Alert, Oriented X3 HEENT: Atraumatic, PERRLA Lungs: Clear to auscultation, Normal air movement Cardiovascular: Normal S1, Normal S2 Abdomen: Normal bowel sounds, Soft Genitourinary: No Apparent Abnormalities Musculoskeletal: Normal sensory function, Normal motor function Neuro: Normal gait, Normal speech Psych/Mental Status: Mental status NL, Mood NL Medications Current Medications Medications Dose Ordered Sig/Jason Route Start Time Stop Time Status Last Admin Dose Admin Nitroglycerin 0.4 mg Q5MINP PRN SL 10/18/24 23:30 Ceftriaxone Sodium 50 ml @ 100 mls/hr DAILY@2100 IV 10/19/24 21:00 10/20/24 22:01 100 MLS/HR Metoprolol Succinate 25 mg DAILY PO 10/19/24 10:00 10/21/24 10:05 25 MG Lorazepam 1 mg Q2HPRN PRN IV 10/19/24 03:00 10/21/24 09:58 1 MG Enoxaparin Sodium 40 mg DAILY SC 10/20/24 10:00 10/21/24 09:45 40 MG Cyclobenzaprine HCl 10 mg Q8HPRN PRN PO 10/19/24 14:45 10/21/24 10:06 10 MG Erythromycin 1 applic Q4HR OP 10/19/24 18:00 UNV Folic Acid 1 mg/ Magnesium Sulfate 8 meq/ Multivitamins 10 ml/Thiamine HCl 100 mg/Sodium Chloride 1,013.2 ml @ 126.247 mls/hr DAILY@1800 INJ 10/20/24 10:30 10/20/24 18:32 126.247 MLS/HR Thiamine HCl 100 mg DAILY IV 10/21/24 10:00 10/21/24 09:46 100 MG Labetalol HCl 5 mg Q2HPRN PRN IV 10/20/24 10:15 Folic Acid 1 mg/ Dextrose 50.2 ml @ 200.8 mls/ hr DAILY INJ 10/21/24 10:00 10/21/24 09:47 200.8 MLS/HR Chlordiazepoxide HCl 25 mg Q6HR PO 10/20/24 18:00 10/21/24 12:23 25 MG Haloperidol Lactate 2.5 mg Q8HP PRN IV 10/20/24 14:30 Erythromycin 1 applic Q4HR OP 10/21/24 14:00 Laboratory Results Laboratory Tests 10/20/24 04:41 10/21/24 05:53 Chemistry Test 10/21/24 05:53 Albumin 3.5 g/dL (3.2-4.8) Calcium Level 9.5 mg/dL (8.7-10.4) Total Protein 6.3 g/dL (5.7-8.2) LFT Test 10/21/24 05:53 Alanine Aminotransferase (ALT) 90 U/L (7-40) H Alkaline Phosphatase 82 U/L (46-116) Aspartate Amino Transferase (AST) 99 U/L (13-40) H Total Bilirubin 0.9 mg/dL (0.2-1.0) Urinalysis Test 10/18/24 19:28 Urine Color Light-orange (Yellow) Urine Clarity Turbid (Clear) H Urine pH 5.5 (5.0-9.0) Urine Specific [place] 1.011 (1.001-1.035) Urine Protein 1+ (Negative) H Urine Ketones 1+ (Negative) H Urine Blood 1+ /uL (Negative) H Urine Nitrite Negative (Negative) Urine Bilirubin Negative (Negative) Urine Urobilinogen Normal mg/dL (Negative) Urine Leukocyte Esterase 1+ /uL (Negative) Urine RBC 1 /hpf (0 - 3) Urine Microscopic WBC 8 /HPF (0-3) H Urine Squamous Epithelial Cells Few /hpf (<5) Urine Bacteria Few /hpf (None Seen) H Urine Hyaline Casts Mod /lpf (0 - 2) Urine Glucose Normal mg/dL (Normal) Labs and/or images reviewed: Labs reviewed by me, Image(s) reviewed by me Assessment/Plan Assessment/Plan Impression: -metabolic encephalopathy, probable delirium tremens -alcoholism -primary hypertension -combative behavior -hypokalemia Plan: Events: Patient no longer in restraints. Patient was now alert and oriented x4. -banana bag daily -IV Ativan as needed, p.o. Librium q.6 hours -potassium replacement -IV Haldol for severe agitation -continue antihypertensives -repeat labs in a.m. Total time spent with patient discussing and formulating plan of care: 35 minutes. This medical document was created using an electronic medical record system with [employer] dictation system. Although this document has been carefully reviewed, there may still be some phonetic and typographical errors. These areas are purely typographical due to imperfections of the software programs, and do not reflect any compromise in the patient's medical care. Plan discussed with: Patient, Other (RN) My Orders Orders - BON MIRANDA NP Procedure Category Date Status Time Chlordiazepoxide Hcl PHA 10/20/24 In Process Capsule (Librium Ca 18:00 Haloperidol Lactate PHA 10/20/24 In Process Injection (Haldol) 14:30 Behavioral Restraints ORDERS 10/20/24 Transmitted 15:44 Date of Service: Oct 21, 2024 Billing Provider: BON MIRANDA NP Common Visit Codes: [id number] INP/OBS CARE(HIGH) BON MIRANDA NP Oct 21, 2024 12:47
[2024-10-21] MEDS: ERYTHROMY OPTH OINT 5mg/gm 1gm or 3.5gm tube OP SCH (14:00)
[2024-10-21 16:38] VITALS: BP 133/85; PULSE 74; RESP 19; TEMP 99.4; O2SAT 94
[2024-10-21] MEDS: MAGNESIUM OXIDE 400 MG TAB PO ONE (17:46)
[2024-10-21] MEDS: MULTIPLE VITAMIN TAB PO ONE (17:46)
[2024-10-21 20:00] VITALS: PULSE 70; PULSE 81; RESP 18; O2SAT 95
[2024-10-21 21:00] VITALS: BP 130/80; PULSE 70; RESP 18; TEMP 98.8; O2SAT 95
[2024-10-22] VITALS (8 sets, daily range): BP systolic 108–142; BP diastolic 62–82; PULSE 57–92; RESP 17–18; TEMP 98.7–102.5; O2SAT 94–97
[2024-10-22] MEDS: MULTIPLE VITAMIN TAB PO SCH (09:38)
[2024-10-22] MEDS: MAGNESIUM OXIDE 400 MG TAB PO SCH (09:39)
[2024-10-22] MEDS ORDERED: FOLIC ACID 1 MG TAB PO SCH (10:00)
[2024-10-22] MEDS ORDERED: THIAMINE HCL 100 MG TAB PO SCH (10:00)
[2024-10-22] MEDS ORDERED: chlordiazePOXIDE HCL 5 MG CAP PO PRN (13:45)
--- NOTE | 2024-10-22 13:51 | DVHPN2 ---
Subjective Patient was alert, but noted to be somewhat somnolent. Reviewed: Care Plan, H&P, Labs, Medications Changes from previous H/P or p: No Changes General: Per HPI Objective Vitals Vital Signs Date Time Temp Pulse Resp B/P (MAP) Pulse Ox O2 Delivery O2 Flow Rate FiO2 10/22/24 09:41 87 135/73 10/22/24 08:53 99.5 17 95 99.5 10/22/24 08:00 Room Air* 0 21 Intake/Output Intake and Output 10/22/24 07:00 Intake Total 930.2 ml Output Total 700 ml Balance 230.2 ml Intake Oral 880 ml IV Total 50.2 ml Output Urine Total 700 ml # Voids 1 Exam Patient noted to be in four point restraints. Apparently patient has been biting, kicking, spitting at staff. General Appearance: Alert, Oriented X3, Cooperative HEENT: Atraumatic, PERRLA Lungs: Clear to auscultation, Normal air movement Cardiovascular: Normal S1, Normal S2 Abdomen: Normal bowel sounds, Soft Genitourinary: No Apparent Abnormalities Musculoskeletal: Normal sensory function, Normal motor function Neuro: Normal gait, Normal speech Skin: Dry, Intact Psych/Mental Status: Mental status NL, Mood NL Medications Current Medications Medications Dose Ordered Sig/Jason Route Start Time Stop Time Status Last Admin Dose Admin Nitroglycerin 0.4 mg Q5MINP PRN SL 10/18/24 23:30 Ceftriaxone Sodium 50 ml @ 100 mls/hr DAILY@2100 IV 10/19/24 21:00 10/21/24 21:34 100 MLS/HR Metoprolol Succinate 25 mg DAILY PO 10/19/24 10:00 10/22/24 09:41 25 MG Lorazepam 1 mg Q2HPRN PRN IV 10/19/24 03:00 10/21/24 09:58 1 MG Enoxaparin Sodium 40 mg DAILY SC 10/20/24 10:00 10/22/24 09:38 40 MG Cyclobenzaprine HCl 10 mg Q8HPRN PRN PO 10/19/24 14:45 10/21/24 21:31 10 MG Erythromycin 1 applic Q4HR OP 10/19/24 18:00 UNV Thiamine HCl 100 mg DAILY IV 10/21/24 10:00 10/22/24 09:38 100 MG Labetalol HCl 5 mg Q2HPRN PRN IV 10/20/24 10:15 Folic Acid 1 mg/ Dextrose 50.2 ml @ 200.8 mls/ hr DAILY INJ 10/21/24 10:00 10/22/24 09:42 200.8 MLS/HR Chlordiazepoxide HCl 25 mg Q6HR PO 10/20/24 18:00 10/22/24 11:57 25 MG Haloperidol Lactate 2.5 mg Q8HP PRN IV 10/20/24 14:30 Erythromycin 1 applic Q4HR OP 10/21/24 14:00 10/22/24 09:42 1 APPLIC Folic Acid 1 mg DAILY PO 10/22/24 10:00 Hold Multivitamins 1 tab DAILY PO 10/22/24 10:00 10/22/24 09:38 1 TAB Magnesium Oxide 400 mg DAILY PO 10/22/24 10:00 10/22/24 09:39 400 MG Thiamine HCl 100 mg DAILY PO 10/22/24 10:00 Hold Laboratory Results Laboratory Tests 10/20/24 04:41 10/21/24 05:53 Urinalysis Test 10/18/24 19:28 Urine Color Light-orange (Yellow) Urine Clarity Turbid (Clear) H Urine pH 5.5 (5.0-9.0) Urine Specific [place] 1.011 (1.001-1.035) Urine Protein 1+ (Negative) H Urine Ketones 1+ (Negative) H Urine Blood 1+ /uL (Negative) H Urine Nitrite Negative (Negative) Urine Bilirubin Negative (Negative) Urine Urobilinogen Normal mg/dL (Negative) Urine Leukocyte Esterase 1+ /uL (Negative) Urine RBC 1 /hpf (0 - 3) Urine Microscopic WBC 8 /HPF (0-3) H Urine Squamous Epithelial Cells Few /hpf (<5) Urine Bacteria Few /hpf (None Seen) H Urine Hyaline Casts Mod /lpf (0 - 2) Urine Glucose Normal mg/dL (Normal) Microbiology Microbiology Date/Time Source Procedure Growth Status 10/20/24 04:00 Voided Urine Urine Culture - Preliminary Resulted Labs and/or images reviewed: Labs reviewed by me, Image(s) reviewed by me Assessment/Plan Assessment/Plan Impression: -metabolic encephalopathy, probable delirium tremens -alcoholism -primary hypertension -combative behavior -hypokalemia Plan: Events: Patient was alert and following commands. Patient ambulated with physical therapy. Noted to be somewhat somnolent. -stop scheduled Librium and p.r.n. Ativan. Start Librium 5 mg as needed every 4 hours -banana bag daily -right knee x-ray -continue antihypertensives -transfer to Medical/Surgical unit Total time spent with patient discussing and formulating plan of care: 35 minutes. This medical document was created using an electronic medical record system with [email or web address] dictation system. Although this document has been carefully reviewed, there may still be some phonetic and typographical errors. These areas are purely typographical due to imperfections of the software programs, and do not reflect any compromise in the patient's medical care. Plan discussed with: Patient, Other (RN) My Orders Orders - BON MIRANDA NP Procedure Category Date Status Time Transfer Orders XFER 10/22/24 Transmitted 13:42 Chlordiazepoxide Hcl PHA 10/22/24 Transmitted Capsule (Librium Ca 13:45 R Knee 3v Xray XY 10/22/24 Transmitted 13:42 Date of Service: Oct 22, 2024 Billing Provider: BON MIRANDA NP Common Visit Codes: [id number] INP/OBS CARE(HIGH) BON MIRANDA NP Oct 22, 2024 13:51
--- NOTE | 2024-10-22 15:00 | DVH ---
CLINICAL INDICATION: pain, swelling TECHNIQUE: XY R KNEE 3V XRAY Comparison: None FINDINGS/IMPRESSION: : There is no evidence of acute fracture or dislocation. Post ACL reconstruction. Severe medial and patellofemoral degenerative joint space narrowing. Large knee joint effusion.
[2024-10-22] MEDS: ACETAMINOPHEN 325 MG TAB PO PRN (19:53)
--- NOTE | 2024-10-22 21:46 | DVH ---
CLINICAL INDICATION: Left shoulder pain from previous fall TECHNIQUE: XY L SHOULDER 1V XRAY Comparison: None FINDINGS/IMPRESSION: : There is no evidence of acute fracture or dislocation. Soft tissues are unremarkable. Surgical screw fixation of the glenoid. Advanced degenerative changes of the shoulder joint.
[2024-10-23] VITALS (8 sets, daily range): BP systolic 104–128; BP diastolic 60–77; PULSE 70–87; RESP 17–18; TEMP 97.9–99.7; O2SAT 95–97
--- NOTE | 2024-10-23 11:28 | DVHPN2 ---
Subjective Patient continues to report having right knee pain. Now alert and oriented x4 Reviewed: Care Plan, H&P, Labs, Medications Changes from previous H/P or p: Changes General: Per HPI Objective Vitals Vital Signs Date Time Temp Pulse Resp B/P (MAP) Pulse Ox O2 Delivery O2 Flow Rate FiO2 10/23/24 10:31 78 117/77 10/23/24 08:39 98.0 18 95 98.0 10/22/24 20:00 Room Air* 0 21 Intake/Output Intake and Output 10/23/24 07:00 Intake Total 2950.2 ml Output Total 3100 ml Balance -149.8 ml Intake Oral 2850 ml IV Total 100.2 ml Output Urine Total 3100 ml Exam Patient noted to be in four point restraints. Apparently patient has been biting, kicking, spitting at staff. General Appearance: Alert, Oriented X3, Cooperative HEENT: Atraumatic, PERRLA Lungs: Clear to auscultation, Normal air movement Cardiovascular: Normal S1, Normal S2 Abdomen: Normal bowel sounds, Soft Genitourinary: No Apparent Abnormalities Musculoskeletal: Normal sensory function, Normal motor function Neuro: Normal gait, Normal speech Skin: Dry, Intact Psych/Mental Status: Mental status NL, Mood NL Medications Current Medications Medications Dose Ordered Sig/Jason Route Start Time Stop Time Status Last Admin Dose Admin Nitroglycerin 0.4 mg Q5MINP PRN SL 10/18/24 23:30 Ceftriaxone Sodium 50 ml @ 100 mls/hr DAILY@2100 IV 10/19/24 21:00 10/22/24 20:04 100 MLS/HR Metoprolol Succinate 25 mg DAILY PO 10/19/24 10:00 10/23/24 10:31 25 MG Enoxaparin Sodium 40 mg DAILY SC 10/20/24 10:00 10/23/24 10:26 40 MG Cyclobenzaprine HCl 10 mg Q8HPRN PRN PO 10/19/24 14:45 10/21/24 21:31 10 MG Erythromycin 1 applic Q4HR OP 10/19/24 18:00 UNV Thiamine HCl 100 mg DAILY IV 10/21/24 10:00 10/23/24 10:27 100 MG Labetalol HCl 5 mg Q2HPRN PRN IV 10/20/24 10:15 Folic Acid 1 mg/ Dextrose 50.2 ml @ 200.8 mls/ hr DAILY INJ 10/21/24 10:00 10/23/24 10:29 200.8 MLS/HR Haloperidol Lactate 2.5 mg Q8HP PRN IV 10/20/24 14:30 Erythromycin 1 applic Q4HR OP 10/21/24 14:00 10/23/24 10:31 1 APPLIC Folic Acid 1 mg DAILY PO 10/22/24 10:00 Hold Multivitamins 1 tab DAILY PO 10/22/24 10:00 10/23/24 10:26 1 TAB Magnesium Oxide 400 mg DAILY PO 10/22/24 10:00 10/23/24 10:25 400 MG Chlordiazepoxide HCl 5 mg Q4HPRN PRN PO 10/22/24 13:45 Acetaminophen 650 mg Q8HPRN PRN PO 10/22/24 18:15 10/22/24 19:53 650 MG Acetaminophen/ Hydrocodone Bitart 1 tab Q6HPRN PRN PO 10/23/24 11:00 Laboratory Results Laboratory Tests 10/20/24 04:41 10/21/24 05:53 Urinalysis Test 10/18/24 19:28 Urine Color Light-orange (Yellow) Urine Clarity Turbid (Clear) H Urine pH 5.5 (5.0-9.0) Urine Specific [place] 1.011 (1.001-1.035) Urine Protein 1+ (Negative) H Urine Ketones 1+ (Negative) H Urine Blood 1+ /uL (Negative) H Urine Nitrite Negative (Negative) Urine Bilirubin Negative (Negative) Urine Urobilinogen Normal mg/dL (Negative) Urine Leukocyte Esterase 1+ /uL (Negative) Urine RBC 1 /hpf (0 - 3) Urine Microscopic WBC 8 /HPF (0-3) H Urine Squamous Epithelial Cells Few /hpf (<5) Urine Bacteria Few /hpf (None Seen) H Urine Hyaline Casts Mod /lpf (0 - 2) Urine Glucose Normal mg/dL (Normal) Microbiology Microbiology Date/Time Source Procedure Growth Status 10/20/24 04:00 Voided Urine Urine Culture - Preliminary Resulted Labs and/or images reviewed: Labs reviewed by me, Image(s) reviewed by me Assessment/Plan Assessment/Plan Impression: -metabolic encephalopathy, probable delirium tremens -alcoholism -primary hypertension -combative behavior -hypokalemia -right knee effusion with significant pain -rule out septic arthritis Plan: Events: Patient now alert and oriented x4. Right knee x-ray reveals large effusion. Patient continues to have significant pain not allowing him to ambulate. -orthopedic surgery consultation -MVI, thiamine daily -pain management -continue antihypertensives -continue IV Rocephin -repeat labs Total time spent with patient discussing and formulating plan of care: 35 minutes. This medical document was created using an electronic medical record system with [employer] dictation system. Although this document has been carefully reviewed, there may still be some phonetic and typographical errors. These areas are purely typographical due to imperfections of the software programs, and do not reflect any compromise in the patient's medical care. Plan discussed with: Patient, Other (RN) My Orders Orders - BON MIRANDA NP Procedure Category Date Status Time Transfer Orders XFER 10/22/24 Transmitted 13:42 Chlordiazepoxide Hcl PHA 10/22/24 In Process Capsule (Librium Ca 13:45 R Knee 3v Xray XY 10/22/24 Resulted 13:42 Erythrocyte LAB 10/23/24 Logged Sedimentation Rate 10:34 C-Reactive Protein LAB 10/23/24 Logged 10:34 *Consult Dr. Hernandez CONS 10/23/24 Transmitted Fabricio 10:34 Complete Blood Count LAB 10/23/24 Logged 10:35 Hydrocodone-Acet PHA 10/23/24 In Process 5/325mg Tab ([place] 11:00 Date of Service: Oct 23, 2024 Billing Provider: BON MIRANDA NP Common Visit Codes: [id number] INP/OBS CARE(HIGH) BON MIRANDA NP Oct 23, 2024 11:28
[2024-10-23 11:47] LABS: Hematocrit 35.1 % (41.0-53.0); Hemoglobin 12.1 g/dL (13.5-17.5); Mean Corpuscular Hgb Conc. 34.6 g/dL (32.0-36.0); Mean Corpuscular Volume 101.3 fL (80.0-100.0); Platelet Count (auto) 224 10^3/uL (140-450); Red Blood Cells 3.46 10^6/uL (4.5-5.90); Red Cell Distribution Width 12.8 % (11.8-14.3); White Blood Cell 7.3 10^3/uL (4.4-10.8)
[2024-10-23 11:56] LABS: Basophils % (manual) 0 (0.0-2.0); Blast Cells 0; Metamyelocytes % 0; Myelocytes % 0; Promyelocytes % 0; Reactive Lymphocytes 0
[2024-10-23 12:34] LABS: Band Neutrophils % (manual) 1; Eosinophils % (manual) 2 (0-7); Lymphocytes % (manual) 18 (10.0-50.0); Monocytes % (manual) 12 (0-12); Platelet Estimate Adequate
[2024-10-23 14:10] LABS: Erythrocyte Sedimentation Rate 90 mm/hr (0-20)
--- NOTE | 2024-10-23 16:05 | DVH ---
CLINICAL INFORMATION: 69 years old, Male; pain/effusion. TECHNIQUE: 3 views of the right knee were obtained. COMPARISON: XY R KNEE 3V XRAY on DOS: 10/22/24 FINDINGS: No acute fracture or dislocation. Postsurgical changes of prior ACL reconstruction. Severe joint space narrowing of the medial compartment and moderate to severe joint space narrowing in the p atellofemoral compartment with associated subchondral sclerosis and marginal osteophytes. Moderate purvi int effusion in the suprapatellar recess. Mild diffuse soft tissue swelling. IMPRESSION: 1. No evidence of acute fracture. 2. Postsurgical changes and arthritic changes as described above. 3. Moderate joint effusion.
[2024-10-23] MEDS: HYDROcodone-ACET 5/325MG TAB PO PRN (17:20)
[2024-10-24] VITALS (9 sets, daily range): BP systolic 124–146; BP diastolic 66–77; PULSE 70–74; RESP 16–19; TEMP 98.1–100.2; O2SAT 94–98
--- NOTE | 2024-10-24 07:38 | DVH ---
Ultrasound right knee INDICATION: RT KNEE EFFUSION TECHNIQUE: Targeted ultrasound of the right knee was performed using a superficial transducer. COMPARISON: None. FINDINGS: There is a fluid collection anterior to the patella measuring approximately 4.9 x 1.2 x 3.8 cm. This is probably within the suprapatellar recess suggestive of a joint effusion. IMPRESSION: 1. Suprapatellar joint effusion.
[2024-10-24] MEDS ORDERED: VANCOMYCIN PER PHARMACY 0 MG IV SCH (08:45)
[2024-10-24] MEDS ORDERED: VANCOMYCIN 1.5GM/300ML 300 ML IV ONE (10:00)
--- NOTE | 2024-10-24 10:04 | DVHINCON2 ---
Date of service: Oct 24, 2024 Referring Physician Hospitalist Reason for Consultation right knee pain History of Present Illness Patient admitted for alcohol withdrawal? Ortho consulted for right knee pain. patient reports chronic history of knee pain which was made worse with a GLF a few days before admission. No fevers or chills at home. denies history of gout. Prior ACL recon many years ago. He reports increased swelling. Pain with any movement or weight bearing. Patient is employed at [employer]. Independent in ADL's Past Medical History PMHx: Hypertension PSHx: Knee and shoulder surgery Social history: Patient lives alone at home, heavy alcohol drinker, ex-smoker, denies any other drug use Home medication: Eliquis, metoprolol and nifedipine Allergic history: No known allergies Allergies: Coded Allergies: NO KNOWN ALLERGIES (Unverified , 10/18/24) Current Medications Current Medications Medications (Trade) Dose Ordered Sig/Jason Route PRN Reason Start Time Stop Time Status Last Admin Acetaminophen/ Hydrocodone Bitart ([place] 5/325MG Tab) 1 tab Q6HPRN PRN PO MODERATE PAIN (4-6 PAIN SCALE) 10/23/24 11:00 10/23/24 17:20 Vancomycin HCl 0 ml @ 0 mls/hr UD IV 10/24/24 08:45 UNV Ceftriaxone Sodium/Dextrose 50 ml @ 50 mls/hr DAILY IV 10/24/24 10:00 Review of Systems negative except as above Vital Signs Vital Signs Date Time Temp Pulse Resp B/P (MAP) Pulse Ox O2 Delivery O2 Flow Rate FiO2 10/24/24 09:53 74 128/71 10/24/24 08:50 99.4 18 94 99.4 10/23/24 20:00 Room Air* 0 21 Physical Exam wdwn male in NAD alert and oriented x4 right knee exam skin intact no erythema nontender to palpation large effusion varus deformity healed midline incision very limited rom due to guarding difficult to assess stability due to guarding no calf edema or ttp distal nv intact xrays right knee reveal varus deformity, osteophytes, bone on bone medial implant LFC ( ACL recon device) Labs/Diagnostic Data Labs Test 10/23/24 11:19 10/21/24 05:53 10/20/24 04:41 10/19/24 05:10 Range/Units White Blood Count 7.3 4.4-10.8 10^3/uL Red Blood Count 3.46 L 4.5-5.90 10^6/uL Hemoglobin 12.1 L 13.5-17.5 g/dL Hematocrit 35.1 L 41.0-53.0 % Mean Corpuscular Volume 101.3 H 80.0-100.0 fL Mean Corpuscular Hemoglobin 35.0 H 28.0-32.0 pg Mean Corpuscular Hemoglobin Concent 34.6 32.0-36.0 g/dL Red Cell Distribution Width 12.8 11.8-14.3 % Platelet Count 224 140-450 10^3/uL Mean Platelet Volume 8.1 6.9-10.8 fL Neutrophils (%) (Auto) 37.0-80.0 % Lymphocytes (%) (Auto) 10.0-50.0 % Monocytes (%) (Auto) 0.0-12.0 % Basophils (%) (Auto) 0.0-2.0 % Neutrophils # (Auto) 1.6-8.6 10 ^3/uL Lymphocytes # (Auto) 0.4-5.4 10 ^3/uL Monocytes # (Auto) 0-1.3 10 ^3/uL Differential Total Cells Counted 100.0 100 Neutrophils % (Manual) 67 37.0-80.0 Band Neutrophils % (Manual) 1 Lymphocytes % (Manual) 18 10.0-50.0 Monocytes % (Manual) 12 0-12 Eosinophils % (Manual) 2 0-7 Basophils % (Manual) 0 0.0-2.0 Metamyelocytes % (manual) 0 Myelocytes % (Manual) 0 Promyelocytes % (Manual) 0 Blast Cells % (Manual) 0 Reactive Lymphocytes 0 Platelet Estimate Adequate Erythrocyte Sedimentation Rate 90 H 0-20 mm/hr Uric Acid 3.9 3.7-9.2 mg/dL C-Reactive Protein High Sensitivity 15.95 H <1.0 mg/dL Sodium Level 138 136-145 mmol/L Potassium Level 3.5 3.5-5.1 mmol/L Chloride Level 104 98-107 mmol/L Carbon Dioxide Level 24 20-31 mmol/L Anion Gap 10 5-15 Blood Urea Nitrogen 8 L 9-23 mg/dL Creatinine 0.67 L 0.700-1.30 mg/dL Glomerular Filtration Rate Calc 102 >90 mL/min BUN/Creatinine Ratio 11.9 10.0-20.0 Serum Glucose 111 H 74-106 mg/dL Calcium Level 9.5 8.7-10.4 mg/dL Total Bilirubin 0.9 0.2-1.0 mg/dL Aspartate Amino Transferase (AST) 99 H 13-40 U/L Alanine Aminotransferase (ALT) 90 H 7-40 U/L Alkaline Phosphatase 82 46-116 U/L Total Protein 6.3 5.7-8.2 g/dL Albumin 3.5 3.2-4.8 g/dL Eosinophils (%) (Auto) 0.9 0.0-7.0 % Eosinophils # (Auto) 0.1 0-0.8 10 ^3/uL Basophils # (Auto) 0 0-0.2 10 ^3/uL Nucleated Red Blood Cells 0.1 % Hepatitis A Antibody Total Negative Negative Hepatitis B Surface Antigen Negative Negative Hepatitis B Surface Antibody Negative Negative Hepatitis B Core Total Antibody Negative Negative Hepatitis C Antibody Negative Negative Lactic Acid Level 0.9 0.4-2.0 mmol/L Magnesium Level 1.7 1.6-2.6 mg/dL Ammonia 20 11-32 umol/L Triglycerides Level 65 < 150 mg/dL Cholesterol Level 137 < 200 mg/dL LDL Cholesterol 46 < 100 mg/dL HDL Cholesterol 70 H 40-59 mg/dL Vitamin B12 Level 633 211-911 pg/mL Vitamin D 25-Hydroxy 8.7 L 30.0-100 ng/mL Folic Acid 9.90 >5.38 ng/mL Thyroid Stimulating Hormone (TSH) 1.22 0.55-4.78 uIU/mL Test 10/18/24 21:12 10/18/24 19:28 10/18/24 18:35 Range/Units Troponin I High Sensitivity 24 </=54 ng/L Urine Color Light-orange Yellow Urine Clarity Turbid H Clear Urine pH 5.5 5.0-9.0 Urine Specific [place] 1.011 1.001-1.035 Urine Protein 1+ H Negative Urine Ketones 1+ H Negative Urine Blood 1+ H Negative /uL Urine Nitrite Negative Negative Urine Bilirubin Negative Negative Urine Urobilinogen Normal Negative mg/dL Urine Leukocyte Esterase 1+ Negative /uL Urine RBC 1 0 - 3 /hpf Urine Microscopic WBC 8 H 0-3 /HPF Urine Squamous Epithelial Cells Few <5 /hpf Urine Bacteria Few H None Seen /hpf Urine Hyaline Casts Mod 0 - 2 /lpf Urine Glucose Normal Normal mg/dL Urine Opiates Screen Neg NEGATIVE Urine Fentanyl Screen Neg NEGATIVE Urine Barbiturates Screen Neg NEGATIVE Urine Phencyclidine Screen Neg NEGATIVE Urine Amphetamines Screen Neg NEGATIVE Urine Benzodiazepines Screen Neg NEGATIVE Urine Cocaine Screen Neg NEGATIVE Urine Cannabinoids Screen Neg NEGATIVE Prothrombin Time 11.9 H 9.3-11.8 sec Prothrombin Time INR 1.14 0.9-1.15 Activated Partial Thromboplast Time 32.0 24.5-34.5 SEC Plasma/Serum Blood Alcohol 7.4 <10 mg/dL Microbiology Date/Time Source Procedure Growth Status 10/20/24 04:00 Voided Urine Urine Culture - Final Complete Assessment 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
--- NOTE | 2024-10-24 10:21 | DVHPN2 ---
Subjective Patient continues to report having right knee pain. Now alert and oriented x4 Reviewed: Care Plan, H&P, Labs, Medications Changes from previous H/P or p: No Changes General: Per HPI Objective Vitals Vital Signs Date Time Temp Pulse Resp B/P (MAP) Pulse Ox O2 Delivery O2 Flow Rate FiO2 10/24/24 09:53 74 128/71 10/24/24 08:50 99.4 18 94 99.4 10/23/24 20:00 Room Air* 0 21 Intake/Output Intake and Output 10/24/24 07:00 Intake Total 1984.2 ml Output Total 1490 ml Balance 494.2 ml Intake Oral 1934 ml IV Total 50.2 ml Output Urine Total 1490 ml Exam Patient noted to be in four point restraints. Apparently patient has been biting, kicking, spitting at staff. General Appearance: Alert, Oriented X3, Cooperative HEENT: Atraumatic, PERRLA Lungs: Clear to auscultation, Normal air movement Cardiovascular: Normal S1, Normal S2 Abdomen: Normal bowel sounds, Soft Genitourinary: No Apparent Abnormalities Musculoskeletal: Normal sensory function, Normal motor function Neuro: Normal gait, Normal speech Skin: Dry, Intact Psych/Mental Status: Mental status NL, Mood NL Medications Current Medications Medications Dose Ordered Sig/Jason Route Start Time Stop Time Status Last Admin Dose Admin Nitroglycerin 0.4 mg Q5MINP PRN SL 10/18/24 23:30 Metoprolol Succinate 25 mg DAILY PO 10/19/24 10:00 10/24/24 09:53 25 MG Enoxaparin Sodium 40 mg DAILY SC 10/20/24 10:00 10/24/24 09:51 40 MG Cyclobenzaprine HCl 10 mg Q8HPRN PRN PO 10/19/24 14:45 10/21/24 21:31 10 MG Erythromycin 1 applic Q4HR OP 10/19/24 18:00 UNV Thiamine HCl 100 mg DAILY IV 10/21/24 10:00 10/24/24 09:52 100 MG Labetalol HCl 5 mg Q2HPRN PRN IV 10/20/24 10:15 Folic Acid 1 mg/ Dextrose 50.2 ml @ 200.8 mls/ hr DAILY INJ 10/21/24 10:00 10/23/24 10:29 200.8 MLS/HR Haloperidol Lactate 2.5 mg Q8HP PRN IV 10/20/24 14:30 Erythromycin 1 applic Q4HR OP 10/21/24 14:00 10/24/24 09:55 1 APPLIC Folic Acid 1 mg DAILY PO 10/22/24 10:00 Hold Multivitamins 1 tab DAILY PO 10/22/24 10:00 10/24/24 09:52 1 TAB Magnesium Oxide 400 mg DAILY PO 10/22/24 10:00 10/24/24 09:52 400 MG Chlordiazepoxide HCl 5 mg Q4HPRN PRN PO 10/22/24 13:45 Acetaminophen 650 mg Q8HPRN PRN PO 10/22/24 18:15 10/22/24 19:53 650 MG Acetaminophen/ Hydrocodone Bitart 1 tab Q6HPRN PRN PO 10/23/24 11:00 10/23/24 17:20 1 TAB Vancomycin HCl 0 ml @ 0 mls/hr UD IV 10/24/24 08:45 UNV Ceftriaxone Sodium/Dextrose 50 ml @ 50 mls/hr DAILY IV 10/24/24 10:00 Laboratory Results Laboratory Tests 10/21/24 05:53 10/23/24 11:19 Urinalysis Test 10/18/24 19:28 Urine Color Light-orange (Yellow) Urine Clarity Turbid (Clear) H Urine pH 5.5 (5.0-9.0) Urine Specific [place] 1.011 (1.001-1.035) Urine Protein 1+ (Negative) H Urine Ketones 1+ (Negative) H Urine Blood 1+ /uL (Negative) H Urine Nitrite Negative (Negative) Urine Bilirubin Negative (Negative) Urine Urobilinogen Normal mg/dL (Negative) Urine Leukocyte Esterase 1+ /uL (Negative) Urine RBC 1 /hpf (0 - 3) Urine Microscopic WBC 8 /HPF (0-3) H Urine Squamous Epithelial Cells Few /hpf (<5) Urine Bacteria Few /hpf (None Seen) H Urine Hyaline Casts Mod /lpf (0 - 2) Urine Glucose Normal mg/dL (Normal) Microbiology Microbiology Date/Time Source Procedure Growth Status 10/20/24 04:00 Voided Urine Urine Culture - Final Complete Labs and/or images reviewed: Labs reviewed by me, Image(s) reviewed by me Assessment/Plan Assessment/Plan Impression: -metabolic encephalopathy, probable delirium tremens -alcoholism -primary hypertension -combative behavior -hypokalemia -right knee effusion with significant pain -rule out septic arthritis Plan: Events: Patient now alert and oriented x4. Ultrasound of right knee reveals effusion. Patient has significant use ailments with range of motion. ESR , CRP both elevated. -orthopedic surgery consultation -MVI, thiamine daily -pain management -continue antihypertensives -change IV antibiotic therapy to Rocephin 2 g daily as well as vancomycin -blood cultures -repeat labs Total time spent with patient discussing and formulating plan of care: 35 minutes. This medical document was created using an electronic medical record system with [employer] dictation system. Although this document has been carefully reviewed, there may still be some phonetic and typographical errors. These areas are purely typographical due to imperfections of the software programs, and do not reflect any compromise in the patient's medical care. Plan discussed with: Patient, Other (RN) My Orders Orders - BON MIRANDA NP Procedure Category Date Status Time *Consult Dr. Hernandez CONS 10/23/24 Transmitted Fabricio 10:34 Hydrocodone-Acet PHA 10/23/24 In Process 5/325mg Tab ([place] 11:00 Vancomycin Per PHA 10/24/24 Pending Pharmacy 08:45 Ceftriaxone 2gm/50ml PHA 10/24/24 In Process D5w (Rocephin 2gm/5 10:00 Basic Metabolic Panel LAB 10/25/24 Verified 04:00 Complete Blood Count LAB 10/25/24 Verified 04:00 Blood Culture [id number] 10/24/24 Logged 08:37 Vancomycin 1.5gm/300ml PHA 10/24/24 In Process 11:00 Date of Service: Oct 24, 2024 Billing Provider: BON MIRANDA NP Common Visit Codes: [id number] INP/OBS CARE(HIGH) BON MIRANDA NP Oct 24, 2024 10:21
[2024-10-24] MEDS: VANCOMYCIN 1.5GM/300ML 300 ML IV ONE (11:40)
--- NOTE | 2024-10-24 11:47 | DVHDS2 ---
Discharge Summary Date of Admission Oct 18, 2024 at 23:20 Date of Discharge: Oct 24, 2024 Admitting Diagnosis Acute alcohol withdrawal Labs/Diagnostic Data: Laboratory Results Test 10/23/24 11:19 10/21/24 05:53 10/20/24 04:41 10/19/24 05:10 White Blood Count 7.3 10^3/uL (4.4-10.8) Red Blood Count 3.46 10^6/uL (4.5-5.90) Hemoglobin 12.1 g/dL (13.5-17.5) Hematocrit 35.1 % (41.0-53.0) Mean Corpuscular Volume 101.3 fL (80.0-100.0) Mean Corpuscular Hemoglobin 35.0 pg (28.0-32.0) Mean Corpuscular Hemoglobin Concent 34.6 g/dL (32.0-36.0) Red Cell Distribution Width 12.8 % (11.8-14.3) Platelet Count 224 10^3/uL (140-450) Mean Platelet Volume 8.1 fL (6.9-10.8) Neutrophils (%) (Auto) % (37.0-80.0) Lymphocytes (%) (Auto) % (10.0-50.0) Monocytes (%) (Auto) % (0.0-12.0) Basophils (%) (Auto) % (0.0-2.0) Neutrophils # (Auto) 10 ^3/uL (1.6-8.6) Lymphocytes # (Auto) 10 ^3/uL (0.4-5.4) Monocytes # (Auto) 10 ^3/uL (0-1.3) Differential Total Cells Counted 100.0 (100) Neutrophils % (Manual) 67 (37.0-80.0) Band Neutrophils % (Manual) 1 Lymphocytes % (Manual) 18 (10.0-50.0) Monocytes % (Manual) 12 (0-12) Eosinophils % (Manual) 2 (0-7) Basophils % (Manual) 0 (0.0-2.0) Metamyelocytes % (manual) 0 Myelocytes % (Manual) 0 Promyelocytes % (Manual) 0 Blast Cells % (Manual) 0 Reactive Lymphocytes 0 Platelet Estimate Adequate Erythrocyte Sedimentation Rate 90 mm/hr (0-20) Uric Acid 3.9 mg/dL (3.7-9.2) C-Reactive Protein High Sensitivity 15.95 mg/dL (<1.0) Sodium Level 138 mmol/L (136-145) Potassium Level 3.5 mmol/L (3.5-5.1) Chloride Level 104 mmol/L (98-107) Carbon Dioxide Level 24 mmol/L (20-31) Anion Gap 10 (5-15) Blood Urea Nitrogen 8 mg/dL (9-23) Creatinine 0.67 mg/dL (0.700-1.30) Glomerular Filtration Rate Calc 102 mL/min (>90) BUN/Creatinine Ratio 11.9 (10.0-20.0) Serum Glucose 111 mg/dL (74-106) Calcium Level 9.5 mg/dL (8.7-10.4) Total Bilirubin 0.9 mg/dL (0.2-1.0) Aspartate Amino Transferase (AST) 99 U/L (13-40) Alanine Aminotransferase (ALT) 90 U/L (7-40) Alkaline Phosphatase 82 U/L (46-116) Total Protein 6.3 g/dL (5.7-8.2) Albumin 3.5 g/dL (3.2-4.8) Eosinophils (%) (Auto) 0.9 % (0.0-7.0) Eosinophils # (Auto) 0.1 10 ^3/uL (0-0.8) Basophils # (Auto) 0 10 ^3/uL (0-0.2) Nucleated Red Blood Cells 0.1 % Hepatitis A Antibody Total Negative (Negative) Hepatitis B Surface Antigen Negative (Negative) Hepatitis B Surface Antibody Negative (Negative) Hepatitis B Core Total Antibody Negative (Negative) Hepatitis C Antibody Negative (Negative) Lactic Acid Level 0.9 mmol/L (0.4-2.0) Magnesium Level 1.7 mg/dL (1.6-2.6) Ammonia 20 umol/L (11-32) Triglycerides Level 65 mg/dL (< 150) Cholesterol Level 137 mg/dL (< 200) LDL Cholesterol 46 mg/dL (< 100) HDL Cholesterol 70 mg/dL (40-59) Vitamin B12 Level 633 pg/mL (211-911) Vitamin D 25-Hydroxy 8.7 ng/mL (30.0-100) Folic Acid 9.90 ng/mL (>5.38) Thyroid Stimulating Hormone (TSH) 1.22 uIU/mL (0.55-4.78) Test 10/18/24 21:12 10/18/24 19:28 10/18/24 18:35 Troponin I High Sensitivity 24 ng/L (</=54) Urine Color Light-orange (Yellow) Urine Clarity Turbid (Clear) Urine pH 5.5 (5.0-9.0) Urine Specific [place] 1.011 (1.001-1.035) Urine Protein 1+ (Negative) Urine Ketones 1+ (Negative) Urine Blood 1+ /uL (Negative) Urine Nitrite Negative (Negative) Urine Bilirubin Negative (Negative) Urine Urobilinogen Normal mg/dL (Negative) Urine Leukocyte Esterase 1+ /uL (Negative) Urine RBC 1 /hpf (0 - 3) Urine Microscopic WBC 8 /HPF (0-3) Urine Squamous Epithelial Cells Few /hpf (<5) Urine Bacteria Few /hpf (None Seen) Urine Hyaline Casts Mod /lpf (0 - 2) Urine Glucose Normal mg/dL (Normal) Urine Opiates Screen Neg (NEGATIVE) Urine Fentanyl Screen Neg (NEGATIVE) Urine Barbiturates Screen Neg (NEGATIVE) Urine Phencyclidine Screen Neg (NEGATIVE) Urine Amphetamines Screen Neg (NEGATIVE) Urine Benzodiazepines Screen Neg (NEGATIVE) Urine Cocaine Screen Neg (NEGATIVE) Urine Cannabinoids Screen Neg (NEGATIVE) Prothrombin Time 11.9 sec (9.3-11.8) Prothrombin Time INR 1.14 (0.9-1.15) Activated Partial Thromboplast Time 32.0 SEC (24.5-34.5) Plasma/Serum Blood Alcohol 7.4 mg/dL (<10) Other Laboratory Tests 10/23/24 11:19 10/21/24 05:53 Brief Hx & Hospital Course: History of Present Illness This is a 69-year-old male with past medical history of hypertension and status post mechanical fall. Per patient, on Thursday (3 days back) back at home, the patient tripped and fell on the ground, but did not loss of consciousness. Patient is a heavy alcohol drinker, and his last drink was on Thursday. Post fall, the patient was feeling weakness, unsteady and stayed at home for 2 days. On Thursday, the patient was assessed at office and referred to the hospital for further evaluation. Patient denies fever, shortness of breath, chest pain, palpitation, nausea, vomiting, blurry vision, or any motor or sensory deficits. Per patient, the patient using Eliquis but does not remember the reason. During hospital admission ER, the patient also had another fall due to instability but the patient did not lose consciousness. Course of hospitalization: Patient was started on scheduled Librium with p.r.n. IV lorazepam for breakthrough symptoms. Patient was also started on banana bag daily. Patient was noted to have some leukocytosis without any fevers, for which empiric antibiotic therapy was started with Rocephin. Patient was found to have continued agitation as well as reported hitting, kicking, spitting on staff, with one one sitter placed with the patient. Patient was mentation improved, for which he was now A&O x4. Patient reports having pain and swelling to his right knee for which three-view x-ray was performed which revealed effusion. Orthopedic surgery consultation was obtained, for which they performed joint aspiration. Fluid was clear. Patient will be discharged home, recommended to be abstain from alcohol, in addition to providing a prescription for thiamine 100 mg p.o. daily, tramadol as needed for pain, and Keflex 500 mg p.o. 4 times a day for the next three days. Patient was agreeable with discharge plan. All questions answered. Physical examination General: Alert and Oriented x3. No acute distress. Well-nourished. Eyes: EOMI. Anicteric. HENT: Moist mucous membranes. Lungs: Clear to auscultation bilaterally. No accessory muscle use. Cardiovascular: Regular rate and rhythm. No murmur. No JVD. Abdomen: Soft, non-tender and non-distended. No palpable masses. Extremities: No edema. Non-tender. Skin: No rashes or lesions. Warm. Right knee swelling Neurologic: No focal neurological deficits. CN II-XII grossly intact, but not individually tested. Psychiatric: Cooperative. Appropriate mood and affect. Total time spent with patient discussing and formulating plan of care: 35 minutes. This medical document was created using an electronic medical record system with [employer] system. Although this document has been carefully reviewed, there may still be some phonetic and typographical errors. These areas are purely typographical due to imperfections of the software programs, and do not reflect any compromise in the patient's medical care. Consults/Reason for consult Orthopedic surgery: Right knee effusion Condition at Discharge: Fair Final Diagnosis/Problems List Acute alcohol withdrawal Secondary Diagnosis: -metabolic encephalopathy, probable delirium tremens -alcoholism -primary hypertension -combative behavior -hypokalemia -right knee effusion with significant pain -ruled out septic arthritis Discharge Disposition: Home Discharge Instruct/Medications Diet: Cardiac 2g Na,low cholest Activity: No Restrictions, As Tolerated Follow Up/Referral: Follow up with PCP in 1-2 weeks Medications: Thiamine 100 mg p.o. daily Tramadol 50 mg p.o. q.6 hours as needed for [id number] pain Keflex 500 mg p.o. 4 times a day x3 days 36 Discharge Statement: "Patient was advised to return to the ER or call 911 if any headaches, dizziness, shortness of breath, chest pain, abdominal pain, bleeding, fevers, or worsening of medical condition. Patient was counseled about treatment plan, medications, possible side effects, patientverbalized understanding. All questions were answered to the best of my ability. This discharge took greater then 30 minutes in planning, reviewing documentation, counseling the patient, and discussing with other team members." ASSESSMENT ASSESSMENT Assessment Acute alcohol withdrawal Date of Service: Oct 24, 2024 Billing Provider: BON MIRANDA NP Common Visit Codes: [id number] DISCH DAY >30min BON MIRANDA NP Oct 24, 2024 11:47
--- NOTE | 2024-10-24 11:48 | DVH ---
US US GUIDANCE FOR NEEDLE PLACEME HISTORY: RT KNEE ASPIRATION PROCEDURE: An informed consent was obtained. The patient was placed supine on the gurney. The suspic ious right knee fluid collection was localized with ultrasound and the overlying skin prepped with ch lorhexidine which was allowed to dry and draped in the usual sterile fashion. Time out was performed and infiltrated with 1% Xylocaine. With US guidance, 19-gauge centesis needle catheter was advanced i nto the fluid collection. Approximately 25 cc of thick serous fluid was aspirated. . No immediate co mplication was identified. The catheter was withdrawn and a sterile bandaid was applied. FINDINGS: Limited US scan of through the right knee demonstrates a fluid collection in the joint flui d. Collection appears simple. IMPRESSION: US guided right knee arthrocentesis with 25 mL fluid removed.
[2024-10-24] MEDS ORDERED: APIX5TAB (12:00)
[2024-10-24] MEDS ORDERED: MET25T (12:00)
[2024-10-24] MEDS ORDERED: NIFE1TAB30 (12:05)
[2024-10-24] MEDS: cefTRIAXone 2GM/50ML D5W 50 ML IV SCH (13:59)
[2024-10-24] MEDS: VANCOMYCIN 1GM/250ML KIT 250 ML IV SCH (23:44)
[2024-10-25] VITALS (7 sets, daily range): BP systolic 107–136; BP diastolic 65–80; PULSE 63–71; RESP 17–18; TEMP 98–98.5; O2SAT 92–98
[2024-10-25 05:39] LABS: Hematocrit 33.4 % (41.0-53.0); Hemoglobin 11.7 g/dL (13.5-17.5); Mean Corpuscular Hemoglobin 35.2 pg (28.0-32.0); Mean Corpuscular Hgb Conc. 35.1 g/dL (32.0-36.0); Mean Corpuscular Volume 100.1 fL (80.0-100.0); Platelet Count (auto) 395 10^3/uL (140-450); Red Blood Cells 3.33 10^6/uL (4.5-5.90); Red Cell Distribution Width 12.7 % (11.8-14.3); White Blood Cell 5.5 10^3/uL (4.4-10.8)
[2024-10-25 05:47] LABS: Anion Gap 8 (5-15); Carbon Dioxide 26 mmol/L (20-31); Chloride 101 mmol/L (98-107); Potassium 4.3 mmol/L (3.5-5.1)
[2024-10-25 05:48] LABS: Calcium 10.1 mg/dL (8.7-10.4)
[2024-10-25 05:53] LABS: BUN/Creatinine Ratio 16.2 (10.0-20.0); Blood Urea Nitrogen 12 mg/dL (9-23)
[2024-10-25 06:01] LABS: Basophils % (manual) 0 (0.0-2.0); Blast Cells 0; Eosinophils % (manual) 0 (0-7); Metamyelocytes % 0; Myelocytes % 0; Promyelocytes % 0; Reactive Lymphocytes 0
[2024-10-25 06:22] LABS: Glucose 126 mg/dL (74-106); Sodium 135 mmol/L (136-145)
[2024-10-25 09:26] LABS: Band Neutrophils % (manual) 3; Lymphocytes % (manual) 32 (10.0-50.0); Monocytes % (manual) 7 (0-12); Platelet Estimate Adequate
--- NOTE | 2024-10-25 10:49 | DVHPN2 ---
Subjective Patient continues to report right knee pain. Reviewed: Care Plan, H&P, Labs, Medications Changes from previous H/P or p: No Changes General: Per HPI Objective Vitals Vital Signs Date Time Temp Pulse Resp B/P (MAP) Pulse Ox O2 Delivery O2 Flow Rate FiO2 10/25/24 09:27 70 141/72 10/25/24 05:00 98.5 18 94 98.5 10/24/24 20:00 Room Air* 0 21 Intake/Output Intake and Output 10/25/24 07:00 Intake Total 2726.2 ml Output Total 3450 ml Balance -723.8 ml Intake Oral 2076 ml IV Total 650.2 ml Output Urine Total 3450 ml Exam Patient noted to be in four point restraints. Apparently patient has been biting, kicking, spitting at staff. General Appearance: Alert, Oriented X3, Cooperative HEENT: Atraumatic, PERRLA Lungs: Clear to auscultation, Normal air movement Cardiovascular: Normal S1, Normal S2 Abdomen: Normal bowel sounds, Soft Genitourinary: No Apparent Abnormalities Musculoskeletal: Normal sensory function, Normal motor function Neuro: Normal gait, Normal speech Skin: Dry, Intact Psych/Mental Status: Mental status NL, Mood NL Medications Current Medications Medications Dose Ordered Sig/Jason Route Start Time Stop Time Status Last Admin Dose Admin Nitroglycerin 0.4 mg Q5MINP PRN SL 10/18/24 23:30 Metoprolol Succinate 25 mg DAILY PO 10/19/24 10:00 10/25/24 09:27 25 MG Enoxaparin Sodium 40 mg DAILY SC 10/20/24 10:00 10/25/24 09:26 40 MG Cyclobenzaprine HCl 10 mg Q8HPRN PRN PO 10/19/24 14:45 10/21/24 21:31 10 MG Erythromycin 1 applic Q4HR OP 10/19/24 18:00 UNV Thiamine HCl 100 mg DAILY IV 10/21/24 10:00 10/25/24 09:26 100 MG Labetalol HCl 5 mg Q2HPRN PRN IV 10/20/24 10:15 Folic Acid 1 mg/ Dextrose 50.2 ml @ 200.8 mls/ hr DAILY INJ 10/21/24 10:00 10/25/24 09:28 200.8 MLS/HR Haloperidol Lactate 2.5 mg Q8HP PRN IV 10/20/24 14:30 Erythromycin 1 applic Q4HR OP 10/21/24 14:00 10/25/24 09:27 1 APPLIC Folic Acid 1 mg DAILY PO 10/22/24 10:00 Hold Multivitamins 1 tab DAILY PO 10/22/24 10:00 10/25/24 09:25 1 TAB Magnesium Oxide 400 mg DAILY PO 10/22/24 10:00 10/25/24 09:24 400 MG Chlordiazepoxide HCl 5 mg Q4HPRN PRN PO 10/22/24 13:45 Acetaminophen 650 mg Q8HPRN PRN PO 10/22/24 18:15 10/22/24 19:53 650 MG Acetaminophen/ Hydrocodone Bitart 1 tab Q6HPRN PRN PO 10/23/24 11:00 10/23/24 17:20 1 TAB Vancomycin HCl 0 ml @ 0 mls/hr UD IV 10/24/24 08:45 Ceftriaxone Sodium/Dextrose 50 ml @ 50 mls/hr DAILY IV 10/24/24 10:00 10/25/24 09:28 50 MLS/HR Vancomycin HCl 250 ml @ 250 mls/hr Q12H IV 10/25/24 00:00 10/24/24 23:44 250 MLS/HR Laboratory Results Laboratory Tests 10/25/24 04:44 Chemistry Test 10/25/24 04:44 Calcium Level 10.1 mg/dL (8.7-10.4) Urinalysis Test 10/18/24 19:28 Urine Color Light-orange (Yellow) Urine Clarity Turbid (Clear) H Urine pH 5.5 (5.0-9.0) Urine Specific [place] 1.011 (1.001-1.035) Urine Protein 1+ (Negative) H Urine Ketones 1+ (Negative) H Urine Blood 1+ /uL (Negative) H Urine Nitrite Negative (Negative) Urine Bilirubin Negative (Negative) Urine Urobilinogen Normal mg/dL (Negative) Urine Leukocyte Esterase 1+ /uL (Negative) Urine RBC 1 /hpf (0 - 3) Urine Microscopic WBC 8 /HPF (0-3) H Urine Squamous Epithelial Cells Few /hpf (<5) Urine Bacteria Few /hpf (None Seen) H Urine Hyaline Casts Mod /lpf (0 - 2) Urine Glucose Normal mg/dL (Normal) Microbiology Microbiology Date/Time Source Procedure Growth Status 10/24/24 10:24 Blood Blood Culture - Preliminary NO GROWTH AFTER 24 HOURS OF INCUBATION. Resulted 10/20/24 04:00 Voided Urine Urine Culture - Final Complete Labs and/or images reviewed: Labs reviewed by me, Image(s) reviewed by me Assessment/Plan Assessment/Plan Impression: -metabolic encephalopathy, probable delirium tremens -alcoholism -primary hypertension -combative behavior -hypokalemia -right knee effusion with significant pain -rule out septic arthritis Plan: Events: Discharge held yesterday given patient requiring DME for assistance with right knee. Apparently, physical therapy is going to assess patient on crutches. Patient will be discharged home today. Continue current plan of care until patient was leaves hospital. At this time he was alert and oriented x4 and does not need a sitter. -orthopedic surgery consultation -MVI, thiamine daily -pain management -continue antihypertensives -change IV antibiotic therapy to Rocephin 2 g daily as well as vancomycin -blood cultures -repeat labs Total time spent with patient discussing and formulating plan of care: 35 minutes. This medical document was created using an electronic medical record system with [employer] dictation system. Although this document has been carefully reviewed, there may still be some phonetic and typographical errors. These areas are purely typographical due to imperfections of the software programs, and do not reflect any compromise in the patient's medical care. Plan discussed with: Patient, Other (RN) My Orders Orders - BON MIRANDA NP Procedure Category Date Status Time Discharge DISCHARGE 10/24/24 Transmitted 11:41 Vancomycin 1gm/250ml PHA 10/25/24 In Process Kit 00:00 Basic Metabolic Panel LAB 10/26/24 Verified 04:00 Vancomycin,Trough LAB 10/25/24 Logged 23:00 Vancomycin Per DORIS 10/25/24 In Process Pharmacy Protoc 23:00 * Machine Operator Replanter CONS 10/24/24 Transmitted Consult * Machine Operator Replanter CONS 10/25/24 Transmitted Consult Date of Service: Oct 25, 2024 Billing Provider: BON MIRANDA NP Common Visit Codes: [id number] INP/OBS CARE(HIGH) BON MIRANDA NP Oct 25, 2024 10:49
[2024-10-25] MEDS ORDERED: CEPH500T PO (15:55)
[2024-10-25] MEDS ORDERED: THIA100T10 PO (15:55)
[2024-10-26 01:00] VITALS: BP 136/70; PULSE 66; RESP 16; TEMP 98.3; O2SAT 95
[2024-10-26 05:00] VITALS: BP 118/73; PULSE 64; RESP 16; TEMP 98.6; O2SAT 95
[2024-10-26 06:27] LABS: Chloride 99 mmol/L (98-107); Potassium 4.4 mmol/L (3.5-5.1)
[2024-10-26 06:28] LABS: Anion Gap 8 (5-15); Carbon Dioxide 28 mmol/L (20-31)
[2024-10-26 06:33] LABS: BUN/Creatinine Ratio 17.1 (10.0-20.0); Blood Urea Nitrogen 14 mg/dL (9-23)
[2024-10-26 06:36] LABS: Calcium 10.5 mg/dL (8.7-10.4); Glucose 132 mg/dL (74-106); Sodium 135 mmol/L (136-145)
[2024-10-26 08:00] VITALS: PULSE 66; RESP 20; O2SAT 94
[2024-10-26 08:30] VITALS: BP 118/64; PULSE 66; RESP 20; TEMP 98.6; O2SAT 94
--- NOTE | 2024-10-26 09:11 | DVHPN2 ---
Progress Note - Dictate Date Seen: Oct 26, 2024 Has the PT tested + for MRSA If YES, has PT been informed?: No Medical Necessity Reason Pt with a Central, PICC or Fol: No vital signs Vital Sign Date Time Temp Pulse Resp B/P (MAP) Pulse Ox O2 Delivery O2 Flow Rate FiO2 10/26/24 08:30 98.6 66 20 118/64 (82) 94 98.6 10/25/24 20:00 Room Air* 0 21 Total Intake and Output 10/25/24 10/25/24 10/26/24 15:00 23:00 07:00 Intake Total 350.2 ml 300 ml 650 ml Output Total 400 ml 500 ml Balance 350.2 ml -100 ml 150 ml medications Current Medications Medications Dose Ordered Sig/Jason Route Start Time Stop Time Status Last Admin Dose Admin Nitroglycerin 0.4 mg Q5MINP PRN SL 10/18/24 23:30 Metoprolol Succinate 25 mg DAILY PO 10/19/24 10:00 10/25/24 09:27 25 MG Enoxaparin Sodium 40 mg DAILY SC 10/20/24 10:00 10/25/24 09:26 40 MG Cyclobenzaprine HCl 10 mg Q8HPRN PRN PO 10/19/24 14:45 10/21/24 21:31 10 MG Erythromycin 1 applic Q4HR OP 10/19/24 18:00 UNV Thiamine HCl 100 mg DAILY IV 10/21/24 10:00 10/25/24 09:26 100 MG Labetalol HCl 5 mg Q2HPRN PRN IV 10/20/24 10:15 Folic Acid 1 mg/ Dextrose 50.2 ml @ 200.8 mls/ hr DAILY INJ 10/21/24 10:00 10/25/24 09:28 200.8 MLS/HR Haloperidol Lactate 2.5 mg Q8HP PRN IV 10/20/24 14:30 Erythromycin 1 applic Q4HR OP 10/21/24 14:00 10/26/24 05:36 1 APPLIC Folic Acid 1 mg DAILY PO 10/22/24 10:00 Hold Multivitamins 1 tab DAILY PO 10/22/24 10:00 10/25/24 09:25 1 TAB Magnesium Oxide 400 mg DAILY PO 10/22/24 10:00 10/25/24 09:24 400 MG Chlordiazepoxide HCl 5 mg Q4HPRN PRN PO 10/22/24 13:45 Acetaminophen 650 mg Q8HPRN PRN PO 10/22/24 18:15 10/22/24 19:53 650 MG Acetaminophen/ Hydrocodone Bitart 1 tab Q6HPRN PRN PO 10/23/24 11:00 10/23/24 17:20 1 TAB Vancomycin HCl 0 ml @ 0 mls/hr UD IV 10/24/24 08:45 Ceftriaxone Sodium/Dextrose 50 ml @ 50 mls/hr DAILY IV 10/24/24 10:00 10/25/24 09:28 50 MLS/HR Vancomycin HCl 250 ml @ 250 mls/hr Q12H IV 10/25/24 00:00 10/25/24 23:24 250 MLS/HR objective aspirate was clear yellow cxs negative so far gram stain no bacteria, few wbc laboratory and microbiology Laboratory Tests 10/26/24 04:51 Test 10/26/24 04:51 Range/Units Serum Glucose 132 H 74-106 mg/dL Assessment/Plan 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
[2024-10-26 09:44] LABS: White Blood Cell 6.5 10^3/uL (4.4-10.8)
[2024-10-26 09:47] LABS: Hematocrit 32.4 % (41.0-53.0); Hemoglobin 11.5 g/dL (13.5-17.5); Mean Corpuscular Hemoglobin 35.7 pg (28.0-32.0); Mean Corpuscular Hgb Conc. 35.3 g/dL (32.0-36.0); Platelet Count (auto) 470 10^3/uL (140-450); Red Blood Cells 3.21 10^6/uL (4.5-5.90); Red Cell Distribution Width 12.8 % (11.8-14.3)
[2024-10-26 09:53] LABS: Band Neutrophils % (manual) 0; Basophils % (manual) 0 (0.0-2.0); Blast Cells 0; Metamyelocytes % 0; Myelocytes % 0; Promyelocytes % 0; Reactive Lymphocytes 0
--- NOTE | 2024-10-26 10:56 | DVHPN2 ---
Subjective Patient continues to report right knee pain. Reviewed: Care Plan, H&P, Labs, Medications Changes from previous H/P or p: No Changes General: Per HPI Objective Vitals Vital Signs Date Time Temp Pulse Resp B/P (MAP) Pulse Ox O2 Delivery O2 Flow Rate FiO2 10/26/24 09:58 66 118/64 10/26/24 08:30 98.6 20 94 98.6 10/26/24 08:00 Room Air* 0 21 Intake/Output Intake and Output 10/26/24 07:00 Intake Total 1300.2 ml Output Total 900 ml Balance 400.2 ml Intake Oral 700 ml IV Total 600.2 ml Output Urine Total 900 ml # Voids 1 Exam Patient noted to be in four point restraints. Apparently patient has been biting, kicking, spitting at staff. General Appearance: Alert, Oriented X3, Cooperative HEENT: Atraumatic, PERRLA Lungs: Clear to auscultation, Normal air movement Cardiovascular: Normal S1, Normal S2 Abdomen: Normal bowel sounds, Soft Genitourinary: No Apparent Abnormalities Musculoskeletal: Normal sensory function, Normal motor function Neuro: Normal gait, Normal speech Skin: Dry, Intact Psych/Mental Status: Mental status NL, Mood NL Medications Current Medications Medications Dose Ordered Sig/Jason Route Start Time Stop Time Status Last Admin Dose Admin Nitroglycerin 0.4 mg Q5MINP PRN SL 10/18/24 23:30 Metoprolol Succinate 25 mg DAILY PO 10/19/24 10:00 10/26/24 09:58 25 MG Enoxaparin Sodium 40 mg DAILY SC 10/20/24 10:00 10/26/24 09:58 40 MG Cyclobenzaprine HCl 10 mg Q8HPRN PRN PO 10/19/24 14:45 10/21/24 21:31 10 MG Erythromycin 1 applic Q4HR OP 10/19/24 18:00 UNV Thiamine HCl 100 mg DAILY IV 10/21/24 10:00 10/26/24 09:57 100 MG Labetalol HCl 5 mg Q2HPRN PRN IV 10/20/24 10:15 Folic Acid 1 mg/ Dextrose 50.2 ml @ 200.8 mls/ hr DAILY INJ 10/21/24 10:00 10/25/24 09:28 200.8 MLS/HR Haloperidol Lactate 2.5 mg Q8HP PRN IV 10/20/24 14:30 Erythromycin 1 applic Q4HR OP 10/21/24 14:00 10/26/24 09:59 1 APPLIC Folic Acid 1 mg DAILY PO 10/22/24 10:00 Hold Multivitamins 1 tab DAILY PO 10/22/24 10:00 10/26/24 09:57 1 TAB Magnesium Oxide 400 mg DAILY PO 10/22/24 10:00 10/26/24 09:58 400 MG Chlordiazepoxide HCl 5 mg Q4HPRN PRN PO 10/22/24 13:45 Acetaminophen 650 mg Q8HPRN PRN PO 10/22/24 18:15 10/22/24 19:53 650 MG Acetaminophen/ Hydrocodone Bitart 1 tab Q6HPRN PRN PO 10/23/24 11:00 10/23/24 17:20 1 TAB Vancomycin HCl 0 ml @ 0 mls/hr UD IV 10/24/24 08:45 Ceftriaxone Sodium/Dextrose 50 ml @ 50 mls/hr DAILY IV 10/24/24 10:00 10/26/24 09:57 50 MLS/HR Vancomycin HCl 250 ml @ 250 mls/hr Q12H IV 10/25/24 00:00 10/25/24 23:24 250 MLS/HR Laboratory Results Laboratory Tests 10/26/24 04:51 10/26/24 09:20 Chemistry Test 10/26/24 04:51 Calcium Level 10.5 mg/dL (8.7-10.4) H Urinalysis Test 10/18/24 19:28 Urine Color Light-orange (Yellow) Urine Clarity Turbid (Clear) H Urine pH 5.5 (5.0-9.0) Urine Specific [place] 1.011 (1.001-1.035) Urine Protein 1+ (Negative) H Urine Ketones 1+ (Negative) H Urine Blood 1+ /uL (Negative) H Urine Nitrite Negative (Negative) Urine Bilirubin Negative (Negative) Urine Urobilinogen Normal mg/dL (Negative) Urine Leukocyte Esterase 1+ /uL (Negative) Urine RBC 1 /hpf (0 - 3) Urine Microscopic WBC 8 /HPF (0-3) H Urine Squamous Epithelial Cells Few /hpf (<5) Urine Bacteria Few /hpf (None Seen) H Urine Hyaline Casts Mod /lpf (0 - 2) Urine Glucose Normal mg/dL (Normal) Microbiology Microbiology Date/Time Source Procedure Growth Status 10/24/24 11:25 Knee Fluid Gram Stain - Final Resulted 10/24/24 11:25 Knee Fluid Body Fluid Culture - Preliminary Resulted 10/24/24 10:24 Blood Blood Culture - Preliminary NO GROWTH AFTER 48 HOURS OF INCUBATION. Resulted 10/20/24 04:00 Voided Urine Urine Culture - Final Complete Assessment/Plan Assessment/Plan Impression: -metabolic encephalopathy, probable delirium tremens -alcoholism -primary hypertension -combative behavior -hypokalemia -right knee effusion with significant pain -rule out septic arthritis Plan: Events: Patient was not discharged yesterday because of transportation issues. Apparently, patient has a ride at 6:00 p.m. tonBeaming. Patient now has walker. Able to ambulate with walker continue current plan of care until he was discharged home. -orthopedic surgery consultation -MVI, thiamine daily -pain management -continue antihypertensives -change IV antibiotic therapy to Rocephin 2 g daily as well as vancomycin -blood cultures -repeat labs Total time spent with patient discussing and formulating plan of care: 35 minutes. This medical document was created using an electronic medical record system with [employer] dictation system. Although this document has been carefully reviewed, there may still be some phonetic and typographical errors. These areas are purely typographical due to imperfections of the software programs, and do not reflect any compromise in the patient's medical care. Plan discussed with: Patient, Other (RN) My Orders Orders - BON MIRANDA NP Procedure Category Date Status Time Complete Blood Count LAB 10/26/24 In Process 04:00 Manual Differential LAB 10/26/24 In Process 09:20 Discharge DISCHARGE 10/26/24 Transmitted 10:32 Date of Service: Oct 26, 2024 Billing Provider: BON MIRANDA NP Common Visit Codes: [id number] INP/OBS CARE(MOD) BON MIRANDA NP Oct 26, 2024 10:56
[2024-10-26 12:52] VITALS: BP 123/69; PULSE 70; RESP 20; TEMP 98.6; O2SAT 95
[2024-10-26 13:22] LABS: Eosinophils % (manual) 1 (0-7); Lymphocytes % (manual) 34 (10.0-50.0); Monocytes % (manual) 12 (0-12)
[2024-10-26 13:23] LABS: Platelet Estimate Increased
[2024-10-26 17:09] VITALS: BP 117/73; PULSE 64; RESP 20; TEMP 98.3; O2SAT 97
== END 2024-10-26 19:02 | disposition home or self-care (01) | DRG 871 ==
LOC: ER 17:39 → TELE 23:20 → TELE-CENTR 10-20 11:20 → CENTRAL 10-22 14:36
PROVIDERS: ADMIT Internal Medicine; ATTEND Nurse Practitioner Acute Care
PROC: 0S9C3ZZ Drainage of Right Knee Joint, Percutaneous Approach (ICD-10-PCS; principal; 2024-10-24)
DX: A41.9 Sepsis, unspecified organism (principal); G93.41 Metabolic encephalopathy; N39.0 Urinary tract infection, site not specified; E87.1 Hypo-osmolality and hyponatremia; E87.20 Acidosis, unspecified; F10.231 Alcohol dependence with withdrawal delirium; N17.9 Acute kidney failure, unspecified; E83.42 Hypomagnesemia; E87.6 Hypokalemia; I10 Essential (primary) hypertension; W01.0XXA Fall on same level from slipping, tripping and stumbling without subsequent striking against object, initial encounter; S09.8XXA Other specified injuries of head, initial encounter; E87.8 Other disorders of electrolyte and fluid balance, not elsewhere classified; K76.0 Fatty (change of) liver, not elsewhere classified; Y90.9 Presence of alcohol in blood, level not specified; N28.1 Cyst of kidney, acquired; H00.013 Hordeolum externum right eye, unspecified eyelid; M25.461 Effusion, right knee; M17.31 Unilateral post-traumatic osteoarthritis, right knee; Z79.01 Long term (current) use of anticoagulants; Y93.89 Activity, other specified; Y92.89 Other specified places as the place of occurrence of the external cause; Y99.8 Other external cause status; Z87.891 Personal history of nicotine dependence; Z63.4 Disappearance and death of family member
CPT/HCPCS: 20611; 36415; 70450; 72125; 73020; 73560; 73562; 76705; 76881; 76942; 80048; 80053; 80061; 80202; 80307; 80320; 81001; 82140; 82306; 82565; 82607; 82746; 83605; 83735; 84443; 84484; 84550; 85007; 85025; 85027; 85610; 85652; 85730; 86141; 86704; 86706; 86708; 86803; 87040; 87086; 87205; 87340; 93005; 96365; 96375; 97110; 97116; 97163; 97530; 99291; C1729; G0378; J7060